=== PATIENT | female | born 1935 | race Hispanic/Latino ===

== ENCOUNTER 2017-01-17 14:40 | Emergency (ER) | payer MEDICARE ==
[2017-01-17 15:20] VITALS: BMI 26.2
[2017-01-17 15:26] VITALS: BP 102/63; PULSE 84; RESP 22; TEMP 97.8; O2SAT 86
[2017-01-17] MEDS ORDERED: TDAP Vaccine 0.5 mL Syr IM ONE (15:46)
--- NOTE | 2017-01-17 15:48 | ED PDOC ---
Arrival/HPI - General Time Seen by Provider: 01/17/17 15:26 - History of Present Illness Narrative History of Present Illness (Text): 01/17/17 15:47 81-year-old female presents emergency Department with a 2-day-old right forearm bite from her cat. Patient states that her cat's rabies vaccinations are up-to- date, states that her cat frequently bites her, states that this is not an unusual occurrence, but states that she became concerned because the site became erythematous. Denies any fevers or chills. Denies any paresthesias. Past Medical History - Provider Review Nursing Documentation Reviewed: Yes - Tetanus Immunization Tetanus Immunization: Unknown - Cardiac Hx Hypertension: Yes - Pulmonary Hx Chronic Obstructive Pulmonary Disease (COPD): Yes - Neurological Hx Paralysis: No - Endocrine/Metabolic Hx Hypothyroidism: Yes - Hematological/Oncological Hx Blood Transfusions: No - Musculoskeletal/Rheumatological Hx Falls: No - Psychiatric Hx Depression: Yes Hx Substance Use: No - Surgical History Hx Cataract Extraction: Yes - Anesthesia Hx Anesthesia: Yes Hx Anesthesia Reactions: No Hx Malignant Hyperthermia: No - Suicidal Assessment Feels Threatened In Home Enviroment: No Family/Social History Family/Social History: Unknown Family HX Smoking Status: Former Smoker Hx Alcohol Use: Yes Hx Substance Use: No Allergies/Home Meds Allergies/Adverse Reactions: Allergies amoxicillin Allergy (Verified 08/15/16 14:49) URTICARIA Penicillins Allergy (Verified 08/15/16 14:49) URTICARIA Home Medications: Home Meds Medication Instructions Recorded Confirmed Atenolol [Atenolol] 25 mg PO DAILY 01/08/15 02/06/15 Escitalopram [Lexapro] 20 mg PO DAILY 01/08/15 02/06/15 Levothyroxine [Synthroid] 75 mcg PO DAILY 01/08/15 02/06/15 Simvastatin [Simvastatin] 20 mg PO DAILY 01/08/15 02/06/15 Arformoterol [Brovana] 1 mayra NEB BID 01/30/15 02/03/15 Budesonide [Pulmicort Respules] 0.5 mg NEB BID 01/30/15 02/03/15 Calcium [Citracal Liquitab] 4 tab PO DAILY 01/30/15 02/03/15 Tiotropium [Spiriva] 18 mcg IH DAILY 01/30/15 02/06/15 predniSONE [Prednisone] 40 mg PO 02/06/15 02/06/15 Riociguat [Adempas] 12/17/15 Physical Exam - Physical Exam Narrative Physical Exam (Text): - Review of Systems Constitutional: Normal. absent: Fatigue, Weight Change, Fevers Eyes: Normal ENT: denies sore throat, denies tristhmus Respiratory: Normal. absent: SOB, Cough, Sputum Cardiovascular: absent: Chest Pain, Palpitations, Syncope Gastrointestinal: Normal. absent: Abdominal Pain, Diarrhea, Nausea, Vomiting Genitourinary: Normal. absent: Dysuria, Frequency, Hematuria, vaginal bleeding Musculoskeletal: Normal. absent: Arthralgias, Back Pain, Neck Pain Skin: bite. no rashes, no erythema Neurological: absent: Focal Weakness Endocrine: Normal Hemo/Lymphatic: Normal Psychiatric: No suicidal or homicidal ideations Physical exam Patient appears age appropriate in no distress, speaking full sentences without difficulty - Systems Exam Head: Present: Atraumatic, Normocephalic Pupils: Present: PERRL Extroacular Muscles: Present: EOMI Conjunctiva: Present: Normal Mouth: Present: Moist Mucous Membranes Neck: Present: Normal Range of Motion. No: MIDLINE TENDERNESS, Paraspinal Tenderness Respiratory/Chest: Present: Clear to Auscultation, Good Air Exchange. No: Respiratory Distress, Accessory Muscle Use, Tachypneic Cardiovascular: Present: Regular Rate and Rhythm, Normal S1, S2, Peripheal Pulses Present. No: Murmurs Abdomen: Present: Normal Bowel Sounds. No: Tenderness, Distention, Peritoneal Signs, Rebound, Guarding Back: Present: Normal Inspection. No: Midline Tenderness, Paraspinal Tenderness Upper Extremity: Present: Normal Inspection. No: Cyanosis, Edema Lower Extremity: Present: Normal Inspection. No: Edema Neurological: Present: GCS=15, Speech Normal, cranial nerves II through XII fully intact with no cerebellar abnormality, neurosensory fully intact. No focal neurological deficits. Skin: Present: Horizontal abrasion patient's right forearm. Healing by secondary intention. Surrounding erythema with less than 1 cm margin without streaking, without purulent discharge. Dry, Normal Color. No: Rashes Lymphatic: Present: OX3, NI, NC Psychiatric: Present: Alert, Oriented x 3, Normal Insight, Normal Concentration Vital Signs Reviewed: Yes Vital Signs Temp Pulse Resp BP Pulse Ox 01/17/17 15:25 97.8 F 84 22 102/63 86 L Temperature: Afebrile Blood Pressure: Normal Pulse: Regular Respiratory Rate: Normal Appearance: Positive for: Well-Appearing Pain Distress: None Mental Status: Positive for: Alert and Oriented X 3 Medical Decision Making ED Course and Treatment: 01/17/17 15:52 81-year-old female presents to the ER after a cat bite. Patient states that cat is up to date with rabies vaccinations. On exam patient has a horizontal abrasion her right forearm. Healing by secondary intention. Surrounding erythema with less than 1 cm margin without streaking, without purulent discharge. No crepitus, no pain out of proportion on palpation. Erythematous area demarcated with a surgical marker Patient instructed to come back right away if the erythema fails to resolve or spreads beyond the margins Patient is penicillin allergic Will be given doxycycline prescription Instructed to follow-up with her primary physician in the next 48 hours for recheck Pt states she understands to return to the ER right away for new or worsening symptoms or for inability to f/u with PMD or specialist as instructed. Patient states that she fully agrees with and understands discharge instructions. States that she agrees with the plan and disposition. Verbalized and repeated discharge instructions and plan. I have given the patient opportunity to ask any additional questions. Disposition/Present on Arrival - Present on Arrival Any Indicators Present on Arrival: No History of DVT/PE: No History of Uncontrolled Diabetes: No Urinary Catheter: No History Surgical Site Infection Following: None - Disposition Have Diagnosis and Disposition been Completed?: Yes Diagnosis: Cat bite Disposition: HOME/ ROUTINE Disposition Time: 15:55 Patient Plan: Discharge Condition: GOOD Discharge Instructions (ExitCare): Animal Bite (ED) Additional Instructions: Please follow-up with your primary physician within 48 hours for wound check Return to the emergency Department right away for fevers, chills, if you are unable to follow up with a primary physician as instructed, for new or worsening redness or swelling, or if the redness spreads outside the demarcated area. Prescriptions: Doxycycline Monohydrate 100 mg PO BID #19 tablet Referrals: Elizabeth Camara MD [Primary Care Provider] - Follow up with primary
== END 2017-01-17 17:25 | disposition home or self-care (01) ==
LOC: ED 14:40
DX: S51.851A Open bite of right forearm, initial encounter (principal); W55.01XA Bitten by cat, initial encounter; Y92.89 Other specified places as the place of occurrence of the external cause; Z23 Encounter for immunization

== ENCOUNTER 2018-08-28 05:53 | Inpatient (IN) | payer MEDICARE ==
[2018-08-28 05:55] VITALS: BMI 23.6
--- NOTE | 2018-08-28 06:09 | ED PDOC ---
Arrival/HPI - General Chief Complaint: Chest Pain Time Seen by Provider: 08/28/18 05:56 Historian: Patient - History of Present Illness Narrative History of Present Illness (Text): 08/28/18 06:09 Areli Quinones is an 83 year old female, whose past medical history includes COPD, pulmonary hypertension, and hyperlipidemia, who presents to the Emergency department brought in by EMS complaining of chest pain. As per patient, she beg an experiencing right-sided chest pain, radiating to her mid chest at 12am today. Patient reports some associated shortness of breath. Patient denies any fever, chills, chest pain, shortness of breath, nausea, vomiting, diarrhea, urinary symptoms, back pain, neck pain, headache, dizziness, or any other complaints. Symptom Onset: Gradual Symptom Course: Unchanged Activities at Onset: Light Context: Home Past Medical History - Provider Review Nursing Documentation Reviewed: Yes - Infectious Disease Hx of Infectious Diseases: None - Tetanus Immunization Tetanus Immunization: Unknown - Reproductive Menopause: Yes - Cardiac Hx Hypertension: Yes - Pulmonary Hx Chronic Obstructive Pulmonary Disease (COPD): Yes - Neurological Hx Paralysis: No - Endocrine/Metabolic Hx Hypothyroidism: Yes - Hematological/Oncological Hx Blood Transfusions: No - Musculoskeletal/Rheumatological Hx Falls: No - Psychiatric Hx Depression: Yes Hx Substance Use: No - Surgical History Hx Cataract Extraction: Yes - Anesthesia Hx Anesthesia: Yes Hx Anesthesia Reactions: No Hx Malignant Hyperthermia: No - Suicidal Assessment Feels Threatened In Home Enviroment: No Family/Social History - Physician Review Nursing Documentation Reviewed: Yes Family/Social History: Unknown Family HX Smoking Status: Former Smoker Hx Alcohol Use: Yes Hx Substance Use: No Allergies/Home Meds Allergies/Adverse Reactions: Allergies amoxicillin Allergy (Verified 08/28/18 05:57) URTICARIA Penicillins Allergy (Verified 08/28/18 05:57) URTICARIA Home Medications: Home Meds Medication Instructions Recorded Confirmed Atenolol 25 mg PO DAILY 01/08/15 02/06/15 Escitalopram [Lexapro] 20 mg PO DAILY 01/08/15 02/06/15 Levothyroxine [Synthroid] 75 mcg PO DAILY 01/08/15 02/06/15 Simvastatin 20 mg PO DAILY 01/08/15 02/06/15 Arformoterol [Brovana] 1 mayra NEB BID 01/30/15 02/03/15 Budesonide [Pulmicort Respules] 0.5 mg NEB BID 01/30/15 02/03/15 Calcium [Citracal Liquitab] 4 tab PO DAILY 01/30/15 02/03/15 Tiotropium [Spiriva] 18 mcg IH DAILY 01/30/15 02/06/15 predniSONE [Prednisone] 40 mg PO 02/06/15 02/06/15 Riociguat [Adempas] 12/17/15 Review of Systems - Physician Review All systems were reviewed & negative as marked: Yes - Review of Systems Constitutional: Normal. absent: Fevers Eyes: Normal ENT: Normal Respiratory: SOB. absent: Cough Cardiovascular: Chest Pain Gastrointestinal: Normal. absent: Abdominal Pain, Diarrhea, Nausea, Vomiting Genitourinary Female: Normal. absent: Dysuria, Frequency, Hematuria Musculoskeletal: Normal. absent: Back Pain, Neck Pain Skin: Normal. absent: Rash Neurological: Normal. absent: Headache, Dizziness Endocrine: Normal Hemo/Lymphatic: Normal Psychiatric: Normal Physical Exam Vital Signs Reviewed: Yes Vital Signs Temp Pulse Resp BP Pulse Ox 08/28/18 06:06 97.9 F 81 17 120/66 89 L Temperature: Afebrile Blood Pressure: Normal Pulse: Regular Respiratory Rate: Normal Appearance: Positive for: Well-Appearing, Non-Toxic, Comfortable Pain Distress: None Mental Status: Positive for: Alert and Oriented X 3 - Systems Exam Head: Present: Atraumatic, Normocephalic Pupils: Present: PERRL Extroacular Muscles: Present: EOMI Conjunctiva: Present: Normal Mouth: Present: Moist Mucous Membranes Neck: Present: Normal Range of Motion Respiratory/Chest: Present: Clear to Auscultation, Good Air Exchange. No: Respiratory Distress, Accessory Muscle Use Cardiovascular: Present: Regular Rate and Rhythm, Normal S1, S2. No: Murmurs Abdomen: No: Tenderness, Distention, Peritoneal Signs Back: Present: Normal Inspection Upper Extremity: Present: Normal Inspection. No: Cyanosis, Edema Lower Extremity: Present: Normal Inspection. No: Edema Neurological: Present: GCS=15, CN II-XII Intact, Speech Normal Skin: Present: Warm, Dry, Normal Color. No: Rashes Psychiatric: Present: Alert, Oriented x 3, Normal Insight, Normal Concentration Medical Decision Making ED Course and Treatment: 08/28/18 06:09 Impression: 83 year old female complaining of chest pain and shortness of breath. Plan: -- EKG -- Chest X-ray -- Labs, cardiac enzymes, D-dimer, BNP -- Reassess and disposition Prior Visits: Notes and results from previous visits were reviewed. Progress Notes: Reviewed EKG, NSR at 80 bpm. Sinus arrhythmia. Non-specific ST/T wave changes. 08/28/18 07:[address] Myles, pending labs, re-evaluation, and disposition. - Scribe Statement The provider has reviewed the documentation as recorded by the Jacqui Gonzalez Provider Scribe Attestation: All medical record entries made by the Scribe were at my direction and personally dictated by me. I have reviewed the chart and agree that the record accurately reflects my personal performance of the history, physical exam, medical decision making, and the department course for this patient. I have also personally directed, reviewed, and agree with the discharge instructions and disposition. Disposition/Present on Arrival - Present on Arrival Any Indicators Present on Arrival: No History of DVT/PE: No History of Uncontrolled Diabetes: No Urinary Catheter: No History of Decub. Ulcer: No History Surgical Site Infection Following: None - Disposition Have Diagnosis and Disposition been Completed?: No Diagnosis: Chest pain Disposition Time: 07:00 Condition: STABLE Discharge Instructions (ExitCare): Chest Pain (ED) Forms: [employer] (Tanzanian)
--- NOTE | 2018-08-28 07:17 | ED PDOC ---
Physical Exam Vital Signs Temp Pulse Resp BP Pulse Ox 08/28/18 06:06 97.9 F 81 17 120/66 89 L Medical Decision Making ED Course and Treatment: 08/28/18 07:00 Case endorsed to me by Dr. Braga. Currently pending labs, reevaluation, and disposition. 08/28/18 07:57 all labs returned and patient updated on results. patient reports to me that she had right upper quad pain that migrated to the epigastric area, associated with nausea and vomit. on exam there is mild epigastric tendernss, no guarding, no rebound, no rigidity, no pulsatile abdominal mass, neg lance. will extend workup to eval for pancreatitis and biliary colic. it was noted on exam that the patient's abdomen appears somewhat distended, patient reports that her abdomen typical has this appearance. Will consider CT. 08/28/18 09:17 at this time patient has no abdominal pain. US shows abnormality concerning for cholecystitis. ddx including but not limited to ruptured duodenal ulcer but unlikely given the patient's presentation and physical exam. admit accepted by dr. siddiqi to the hospitalist service. observation status. case discussed with the surgical assist and will see pt in consult. - RAD Interpretation Narrative RAD Interpretations (Text): 08/28/18 07:24 ekg my read: sinus rhythm at 80 bpm, nml qrs, low voltage, nonspecific t wave abn, prolonged QTc Radiology Orders: 08/28/18 06:43 CHEST PORTABLE [RAD] Stat - Scribe Statement The provider has reviewed the documentation as recorded by the Jacqui Salamanca Provider Scribe Attestation: All medical record entries made by the Scribe were at my direction and personally dictated by me. I have reviewed the chart and agree that the record accurately reflects my personal performance of the history, physical exam, [facility] decision making, and the department course for this patient. I have also personally directed, reviewed, and agree with the discharge instructions and disposition. Disposition/Present on Arrival - Present on Arrival Any Indicators Present on Arrival: No History of DVT/PE: No History of Uncontrolled Diabetes: No Urinary Catheter: No History of Decub. Ulcer: No History Surgical Site Infection Following: None - Disposition Have Diagnosis and Disposition been Completed?: Yes Diagnosis: Abdominal pain, Biliary colic Disposition: HOSPITALIZED Disposition Time: 09:19 Patient Plan: Observation Patient Problems: Current Active Problems Problem Status Onset Chest pain Acute Condition: STABLE Discharge Instructions (ExitCare): Chest Pain (ED) Forms: [employer] (Lao)
[2018-08-28 07:25] LABS: HEMOGLOBIN 10.9 g/dL (12.0-16.0); MEAN CELL VOLUME 93.1 fl (80.0-105.0); MEAN CORPUSCULAR HEMOGLOBIN 28.9 pg (25.0-35.0); MEAN CORPUSCULAR HGB CONC 31.1 g/dl (31.0-37.0); MEAN PLATELET VOLUME 8.5 fl (7.0-11.0); RBC 3.77 10^6/uL (3.5-6.1); RED CELL DISTRIBUTION WIDTH 14.4 % (11.5-14.5); WHITE BLOOD COUNT 10.4 10^3/uL (4.5-11.0)
[2018-08-28 07:34] LABS: ALB/GLOB RATIO 1.4 (1.1-1.8); ALBUMIN 4.1 g/dL (3.0-4.8); ALT/SGPT 23 U/L (7-56); AST/SGOT 25 U/L (14-36); BLOOD UREA NITROGEN 14 mg/dL (7-21); GFR NON-AFRICAN AMERICAN 43; INR 1.05; PARTIAL THROMBOPLASTIN TIME 28.2 Seconds (25.1-36.5); PROTHROMBIN TIME 12.1 SECONDS (9.4-12.5)
[2018-08-28 07:47] LABS: B-TYPE NATRIURETIC PEPTIDE 490 pg/mL (0-450); TROPONIN I < 0.01 ng/mL
[2018-08-28] MEDS ORDERED: Potassium Chloride 20 mEq ER Tab PO STA (08:47)
[2018-08-28] MEDS ORDERED: Sodium Chloride 0.9% 1,000 ML IV SCH (09:30)
--- NOTE | 2018-08-28 10:02 | RAD ---
Date of service: 08/28/2018 HISTORY: chest pain COMPARISON: 10/26/2017 FINDINGS: LUNGS: No active pulmonary disease. PLEURA: No significant pleural effusion identified, no pneumothorax apparent. CARDIOVASCULAR: No aortic atherosclerotic calcification present. Normal cardiac size. No pulmonary vascular congestion. OSSEOUS STRUCTURES: No significant abnormalities. VISUALIZED UPPER ABDOMEN: Normal. OTHER FINDINGS: None. IMPRESSION: No active disease.
--- NOTE | 2018-08-28 10:52 | US ---
Date of service: 08/28/2018 HISTORY: pain, ?gallstones COMPARISON: 06/08/2016 abdominal ultrasound TECHNIQUE: Sonographic evaluation of the right upper quadrant of the abdomen. FINDINGS: LIVER: Measures 16.7 cm in length. Patent portal vein. Portal venous flow: Hepatopetal. Unremarkable echogenicity of the liver parenchyma. No mass. No intrahepatic bile duct dilatation. Solitary echogenic mass in the right hepatic lobe 7 x 9 mm, identified on the prior ultrasound of the liver cannot be duplicated on the current study GALLBLADDER: Gallstones identified. Gallbladder wall edema noted in there is trace pericholecystic fluid. Despite the absence of sonographic Walsh sign the findings are suspicious for acute cholecystitis. COMMON BILE DUCT: Measures 4.2 mm. No stones. No dilatation. PANCREAS: Unremarkable as visualized. No mass. No ductal dilatation. RIGHT KIDNEY: Measures 3.6 x 9.6 cm in length. Normal echogenicity. No calculus, mass, or hydronephrosis. AORTA: No aneurysmal dilatation. IVC: Unremarkable. OTHER FINDINGS: None . IMPRESSION: Gallstones. Gallbladder wall thickening/pericholecystic fluid presumptive evidence for acute cholecystitis.
--- NOTE | 2018-08-28 12:12 | CP.PCM.CON ---
<mEeka Manuel - Last Filed: 08/28/18 14:19> History of Present Illness - History of Present Illness History of Present Illness: Surgery Consult Note- Dr. Huang Reason for Consult: RUQ pain 83 y/o female with PMH of COPD, HTN, HCL, Hypothyroidism, Depression, GERD, pulmonary HTN presents to the ED for one day h/o sharp RUQ/epigastric abd pain 8-9/10, intermittent, not related to food ingestion, with no alleviating or worsening factors. Pain is associated with one episode of NBNB vomiting and nausea. Patient denied fever, hematemesis, hematochezia, melena. Patient denied similar episodes in the past. 12 points ROS reviewed with pertinent positives as above. PMH: as above PSH: cataract surgery Meds: as per EMR All: PCN SH: Former Smoker, alcoholic. denied drug use FH: non contributory Past Patient History - Infectious Disease Hx of Infectious Diseases: None - Tetanus Immunizations Tetanus Immunization: Unknown - Past Social History Smoking Status: Former Smoker - CARDIAC Hx Hypertension: Yes - PULMONARY Hx Chronic Obstructive Pulmonary Disease (COPD): Yes - NEUROLOGICAL Hx Paralysis: No - ENDOCRINE/METABOLIC Hx Hypothyroidism: Yes - HEMATOLOGICAL/ONCOLOGICAL Hx Blood Transfusions: No - MUSCULOSKELETAL/RHEUMATOLOGICAL Hx Falls: No - PSYCHIATRIC Hx Depression: Yes Hx Substance Use: No - SURGICAL HISTORY Hx Cataract Extraction: Yes - ANESTHESIA Hx Anesthesia: Yes Hx Anesthesia Reactions: No Hx Malignant Hyperthermia: No Meds Allergies/Adverse Reactions: Allergies Allergy/AdvReac Type Severity Reaction Status Date / Time amoxicillin Allergy URTICARIA Verified 08/28/18 05:57 Penicillins Allergy URTICARIA Verified 08/28/18 05:57 - Medications Medications: Current Medications Sodium Chloride (Sodium Chloride 0.9%) 1,000 mls @ 150 mls/hr IV .[id number] [facility] Last Admin: 08/28/18 10:38 Dose: 150 mls/hr Physical Exam - Constitutional Appears: Well, Non-toxic - Head Exam Head Exam: ATRAUMATIC, NORMAL INSPECTION, NORMOCEPHALIC - Eye Exam Eye Exam: EOMI, Normal appearance, PERRL Pupil Exam: NORMAL ACCOMODATION, PERRL - ENT Exam ENT Exam: Mucous Membranes Moist, Normal Exam - Neck Exam Neck exam: Positive for: Normal Inspection - Respiratory Exam Respiratory Exam: Clear to Auscultation Bilateral, NORMAL BREATHING PATTERN - Cardiovascular Exam Cardiovascular Exam: REGULAR RHYTHM, +S1, +S2 - GI/Abdominal Exam GI & Abdominal Exam: Normal Bowel Sounds, Soft, Tenderness (mild TTP in RUQ and epigastric areas). absent: Distended, Hernia, Mass, Rebound, Rigid Additional comments: negative Walsh's - Back Exam Back exam: NORMAL INSPECTION - Neurological Exam Neurological exam: Alert, CN II-XII Intact, Oriented x3 - Psychiatric Exam Psychiatric exam: Normal Affect, Normal Mood - Skin Skin Exam: Dry, Intact, Normal Color, Warm Results - Vital Signs Recent Vital Signs: Last Vital Signs Temp 98.4 F 08/28/18 10:42 Pulse 70 08/28/18 10:42 Resp 18 08/28/18 10:42 BP 100/53 L 08/28/18 10:42 Pulse Ox 94 L 08/28/18 11:00 - Labs Result Diagrams: 08/28/18 07:00 08/28/18 07:00 Labs: Laboratory Results - last 24 hr 08/28/18 08/28/18 08/28/18 07:00 07:00 07:00 WBC 10.4 RBC 3.77 Hgb 10.9 L Hct 35.1 L MCV 93.1 MCH 28.9 MCHC 31.1 RDW 14.4 Plt Count 345 MPV 8.5 PT 12.1 INR 1.05 APTT 28.2 D-Dimer, Quantitative 210 Sodium 139 Potassium 3.1 L Chloride 102 Carbon Dioxide 30 Anion Gap 10 BUN 14 Creatinine 1.2 Est GFR ( Amer) 52 Est GFR (Non-Af Amer) 43 Random Glucose 131 H Calcium 9.0 Total Bilirubin 0.6 AST 25 ALT 23 Alkaline Phosphatase 69 Lactate Dehydrogenase 463 Total Creatine Kinase 160 Troponin I < 0.01 NT-Pro-B Natriuret Pep 490 H Total Protein 7.1 Albumin 4.1 Globulin 3.0 Albumin/Globulin Ratio 1.4 Lipase 08/28/18 07:00 WBC RBC Hgb Hct MCV MCH MCHC RDW Plt Count MPV PT INR APTT D-Dimer, Quantitative Sodium Potassium Chloride Carbon Dioxide Anion Gap BUN Creatinine Est GFR ( Amer) Est GFR (Non-Af Amer) Random Glucose Calcium Total Bilirubin AST ALT Alkaline Phosphatase Lactate Dehydrogenase Total Creatine Kinase Troponin I NT-Pro-B Natriuret Pep Total Protein Albumin Globulin Albumin/Globulin Ratio Lipase 116 Assessment & Plan - Assessment and Plan (Free Text) Assessment: 83 y/o female with RUQ/epigastric abd pain x1 day. Patient afebrile, no leukocytosis, in NAD COPD HTN HLD Hypothyroidism Depression GERD Pulmonary HTN Plan: -U/S abd: gall bladder wall thickening with pericholecystic fluid. CBD 4.2 -LFT, lipase wnl -protonix -continue IVF -started cipro -clear liquid diet -no acute surgical intervention at this time -continued management per primary team -further recs per surgical attending Dr. Sal Manuel, DO <Andres Huang - Last Filed: 09/01/18 20:40> Results - Vital Signs Recent Vital Signs: Last Vital Signs Temp 98.2 F 09/01/18 06:00 Pulse 66 09/01/18 06:00 Resp 18 09/01/18 06:00 BP 98/60 L 09/01/18 10:05 Pulse Ox 92 L 09/01/18 06:00 - Labs Result Diagrams: 08/31/18 05:30 08/31/18 05:30 Labs: Laboratory Results - last 24 hr 09/01/18 10:20 Urine Color Yellow Urine Appearance Clear Urine pH 5.5 Ur Specific [place] 1.025 Urine Protein Negative Urine Glucose (UA) Negative Urine Ketones Negative Urine Blood Negative Urine Nitrate Negative Urine Bilirubin Negative Urine Urobilinogen 0.2 Ur Leukocyte Esterase Negative Attending/Attestation - Attestation I have personally seen and examined this patient.: Yes I have fully participated in the care of the patient.: Yes I have reviewed all pertinent clinical information: Yes Notes (Text): Pt was seen and examined at bedside Agree with above note and assessment Pt with upper abdominal pain and nausea Abdomen: Soft, Tender in RUQ, ND Labs and radiology reviewed Ass: Abdominal pain, Cholelithiasis Plan: Clear liquid diet GI consult HIDA scan IV antibiotics c.w current mx Plan d.w pt in detail Risk and benefit explained in detail.
--- NOTE | 2018-08-28 13:28 | CP.PCM.HP ---
<Dewayne Manuelony - Last Filed: 08/28/18 14:12> Meds Allergies/Adverse Reactions: Allergies Allergy/AdvReac Type Severity Reaction Status Date / Time amoxicillin Allergy URTICARIA Verified 08/28/18 05:57 Penicillins Allergy URTICARIA Verified 08/28/18 05:57 Results - Vital Signs Recent Vital Signs: Last Vital Signs Temp 98.4 F 08/28/18 10:42 Pulse 70 08/28/18 10:42 Resp 18 08/28/18 10:42 BP 100/53 L 08/28/18 10:42 Pulse Ox 94 L 08/28/18 11:00 - Labs Result Diagrams: 08/28/18 07:00 08/28/18 07:00 Labs: Laboratory Results - last 24 hr 08/28/18 08/28/18 08/28/18 07:00 07:00 07:00 WBC 10.4 RBC 3.77 Hgb 10.9 L Hct 35.1 L MCV 93.1 MCH 28.9 MCHC 31.1 RDW 14.4 Plt Count 345 MPV 8.5 PT 12.1 INR 1.05 APTT 28.2 D-Dimer, Quantitative 210 Sodium 139 Potassium 3.1 L Chloride 102 Carbon Dioxide 30 Anion Gap 10 BUN 14 Creatinine 1.2 Est GFR ( Amer) 52 Est GFR (Non-Af Amer) 43 Random Glucose 131 H Calcium 9.0 Total Bilirubin 0.6 AST 25 ALT 23 Alkaline Phosphatase 69 Lactate Dehydrogenase 463 Total Creatine Kinase 160 Troponin I < 0.01 NT-Pro-B Natriuret Pep 490 H Total Protein 7.1 Albumin 4.1 Globulin 3.0 Albumin/Globulin Ratio 1.4 Lipase 08/28/18 07:00 WBC RBC Hgb Hct MCV MCH MCHC RDW Plt Count MPV PT INR APTT D-Dimer, Quantitative Sodium Potassium Chloride Carbon Dioxide Anion Gap BUN Creatinine Est GFR ( Amer) Est GFR (Non-Af Amer) Random Glucose Calcium Total Bilirubin AST ALT Alkaline Phosphatase Lactate Dehydrogenase Total Creatine Kinase Troponin I NT-Pro-B Natriuret Pep Total Protein Albumin Globulin Albumin/Globulin Ratio Lipase 116 <Neto Palacios - Last Filed: 08/28/18 17:18> History of Present Illness - History of Present Illness History of Present Illness: HISTORY & PHYSICAL NOTE FOR HOSPITALIST TEAM- DR. BAUDILIO PALACIOS PGY1 83 y/o F with PMHx of COPD on 3L home O2, pulm HTN, HTN, HLD, hypothyroidism, depression, anxiety presents to ED with complaints of abdominal pain that started last night around 12am. She reports she noticed burning 6/10 right upper quadrant pain that eventually radiated to the epigastric region. She reports associated nausea and 2 episodes of vomiting. Upon interview, she reports the pain has begun to resolve. Pt also reports burning with urination without hematuria or noted pyuria. She reports shortnes of breath for several years. She denies fevers, chills, headache, dizziness, chest pain, palpitations, constipation, diarrhea. PMH:COPD on 3L home O2, Pulm HTN, HTN, HLD, hypothyroidism, depression All: penicillins-Hives PSH: liposuction 10 years ago, colonoscopy x 2 SH: 1 pack/day x 60 years. 4-5 glasses wine x 15 years. No drug use FH: Mother: -dementia. Father: . Brother: prostate cancer Meds:Uptravi 1200mg q12h, Adempas 2.5mg tid, levothyroxine 100mcg qd, simvastatin 20mg qd, furosemide 40mg qd, escitalopram 20mg qd, alprazolam 0.25mg qhs, pantoprazole 40mg qd, spiriva inh 18mcg, mucinex dm qd PMD: Dr. Reed [facility]: [facility] (p[facility] HTN meds) Present on Admission - Present on Admission Any Indicators Present on Admission: No Review of Systems - Review of Systems Review of Systems: per HPI Past Patient History - Infectious Disease Hx of Infectious Diseases: None - Tetanus Immunizations Tetanus Immunization: Unknown - Past Social History Smoking Status: Former Smoker - CARDIAC Hx Hypertension: Yes - PULMONARY Hx Chronic Obstructive Pulmonary Disease (COPD): Yes - NEUROLOGICAL Hx Paralysis: No - ENDOCRINE/METABOLIC Hx Hypothyroidism: Yes - HEMATOLOGICAL/ONCOLOGICAL Hx Blood Transfusions: No - MUSCULOSKELETAL/RHEUMATOLOGICAL Hx Falls: No - PSYCHIATRIC Hx Depression: Yes Hx Substance Use: No - SURGICAL HISTORY Hx Cataract Extraction: Yes - ANESTHESIA Hx Anesthesia: Yes Hx Anesthesia Reactions: No Hx Malignant Hyperthermia: No Physical Exam - Constitutional Appears: Well, Non-toxic, No Acute Distress - Head Exam Head Exam: ATRAUMATIC, NORMAL INSPECTION - Eye Exam Eye Exam: EOMI, Normal appearance - ENT Exam ENT Exam: Mucous Membranes Moist, Normal Exam - Neck Exam Neck exam: Positive for: Normal Inspection - Respiratory Exam Respiratory Exam: Clear to Auscultation Bilateral, NORMAL BREATHING PATTERN - Cardiovascular Exam Cardiovascular Exam: REGULAR RHYTHM, +S1, +S2 - GI/Abdominal Exam GI & Abdominal Exam: Normal Bowel Sounds, Soft. absent: Distended, Guarding, Rigid, Tenderness Additional comments: lance (-) - Extremities Exam Extremities exam: Positive for: normal inspection. Negative for: calf tenderness - Back Exam Back exam: NORMAL INSPECTION - Neurological Exam Neurological exam: Alert, Oriented x3 - Psychiatric Exam Psychiatric exam: Normal Affect, Normal Mood - Skin Skin Exam: Dry, Intact, Warm Results - Vital Signs Recent Vital Signs: Last Vital Signs Temp 98.4 F 08/28/18 10:42 Pulse 70 08/28/18 10:42 Resp 18 08/28/18 10:42 BP 100/53 L 08/28/18 10:42 Pulse Ox 94 L 08/28/18 11:00 - Labs Result Diagrams: 08/28/18 07:00 08/28/18 07:00 Labs: Laboratory Results - last 24 hr 08/28/18 08/28/18 08/28/18 07:00 07:00 07:00 WBC 10.4 RBC 3.77 Hgb 10.9 L Hct 35.1 L MCV 93.1 MCH 28.9 MCHC 31.1 RDW 14.4 Plt Count 345 MPV 8.5 PT 12.1 INR 1.05 APTT 28.2 D-Dimer, Quantitative 210 Sodium 139 Potassium 3.1 L Chloride 102 Carbon Dioxide 30 Anion Gap 10 BUN 14 Creatinine 1.2 Est GFR ( Amer) 52 Est GFR (Non-Af Amer) 43 Random Glucose 131 H Calcium 9.0 Total Bilirubin 0.6 AST 25 ALT 23 Alkaline Phosphatase 69 Lactate Dehydrogenase 463 Total Creatine Kinase 160 Troponin I < 0.01 NT-Pro-B Natriuret Pep 490 H Total Protein 7.1 Albumin 4.1 Globulin 3.0 Albumin/Globulin Ratio 1.4 Lipase 08/28/18 07:00 WBC RBC Hgb Hct MCV MCH MCHC RDW Plt Count MPV PT INR APTT D-Dimer, Quantitative Sodium Potassium Chloride Carbon Dioxide Anion Gap BUN Creatinine Est GFR ( Amer) Est GFR (Non-Af Amer) Random Glucose Calcium Total Bilirubin AST ALT Alkaline Phosphatase Lactate Dehydrogenase Total Creatine Kinase Troponin I NT-Pro-B Natriuret Pep Total Protein Albumin Globulin Albumin/Globulin Ratio Lipase 116 Assessment & Plan - Assessment and Plan (Free Text) Assessment: 83 y/o F with PMHx of COPD on 3L home O2, pulm HTN, HTN, HLD, hypothyroidism, depression, anxiety admitted for abdominal pain 2/2 acute cholecystitis Plan: Acute cholecystitis Abd u/s reveals gallstones with GB wall thickening/pericholecystic fluid presumptive evidence for acute cholecystitis Lipase/LFTs wnl Consult surgery: No acute surgical intervention at this time Begin empiric ciprofloxacin, IVF, CLD Hx of Pulm HTN continue home Uptravi and Adempas continue home lasix Hx of COPD Duonebs continue home Spiriva Hx of HLD Continue atorvastatin Hx of Depression Continue escitalopram, xanax Hx of hypothyroidism continue home levothyroxine DVT/GI: LVX/PTX Case seen, examined and discussed with attending physician, Dr Baudilio Palacios PGY1
[2018-08-28] MEDS ORDERED: Tiotropium 18 mcg Cap For Inhalation IH SCH (16:00)
[2018-08-28] MEDS ORDERED: Non Formulary Medication (Simvastatin [Zocor] 1 TAB) PO SCH (16:00)
[2018-08-28] MEDS ORDERED: guaiFENesin-DM 600-30 mg ER Tab PO SCH (16:00)
[2018-08-28] MEDS ORDERED: Home Med 1 UNIT PO SCH ×3 (16:00→18:00)
[2018-08-28] MEDS ORDERED: Pantoprazole 40 mg EC Tab PO SCH (16:00)
[2018-08-28] MEDS ORDERED: Albuterol-Ipratrop 3 mg / 0.5 (3 ml) UD IH PRN (16:10)
[2018-08-28] MEDS ORDERED: UPTRAVI PO SCH (16:30)
[2018-08-28] MEDS ORDERED: Influenza Vaccine 60 mcg/0.5 mL SYR (4YR UP) IM ONE (17:09)
[2018-08-28] MEDS ORDERED: Pneumococcal 23-Valent Vaccine IM ONE (17:09)
--- NOTE | 2018-08-28 17:21 | CP.PCM.HP ---
<Neto Palacios - Last Filed: 08/28/18 17:21> History of Present Illness - History of Present Illness History of Present Illness: HISTORY & PHYSICAL NOTE FOR HOSPITALIST TEAM- DR. BAUDILIO PALACIOS PGY1 83 y/o F with PMHx of COPD on 3L home O2, pulm HTN, HTN, HLD, hypothyroidism, depression, anxiety presents to ED with complaints of abdominal pain that started last night around 12am. She reports she noticed burning 6/10 right upper quadrant pain that eventually radiated to the epigastric region. She reports associated nausea and 2 episodes of vomiting. Upon interview, she reports the pain has begun to resolve. Pt also reports burning with urination without hematuria or noted pyuria. She reports shortnes of breath for several years. She denies fevers, chills, headache, dizziness, chest pain, palpitations, constipation, diarrhea. PMH:COPD on 3L home O2, Pulm HTN, HTN, HLD, hypothyroidism, depression All: penicillins-Hives PSH: liposuction 10 years ago, colonoscopy x 2 SH: 1 pack/day x 60 years. 4-5 glasses wine x 15 years. No drug use FH: Mother: -dementia. Father: . Brother: prostate cancer Meds: Uptravi 1200mg q12h, Adempas 2.5mg tid, levothyroxine 100mcg qd, simvastatin 20mg qd, furosemide 40mg qd, escitalopram 20mg qd, alprazolam 0.25mg qhs, pantoprazole 40mg qd, spiriva inh 18mcg, mucinex dm qd PMD: Dr. Reed [facility]: [facility] (p[facility] HTN meds) Present on Admission - Present on Admission Any Indicators Present on Admission: No Review of Systems - Review of Systems Review of Systems: per HPI Past Patient History - Infectious Disease Hx of Infectious Diseases: None - Tetanus Immunizations Tetanus Immunization: Unknown - Past Social History Smoking Status: Former Smoker - CARDIAC Hx Cardiac Disorders: Yes Hx Hypercholesterolemia: Yes Hx Hypertension: Yes - PULMONARY Hx Respiratory Disorders: Yes (home o2/nebulizer machine) Hx Chronic Obstructive Pulmonary Disease (COPD): Yes Other/Comment: pulmonary htn - NEUROLOGICAL Hx Neurological Disorder: No - HEENT Hx HEENT Problems: Yes ([place] doesn't use her hearing aids) Hx Cataracts: Yes (b/l sx) - ENDOCRINE/METABOLIC Hx Endocrine Disorders: Yes Hx Hypothyroidism: Yes - HEMATOLOGICAL/ONCOLOGICAL Hx Blood Transfusions: No - INTEGUMENTARY Hx Dermatological Problems: Yes Other/Comment: multiple skin discolorations b/l arms, multiple small brown sports to skin on back, b/l bunyons, tetanus shot 01/17/17 from cat bite - MUSCULOSKELETAL/RHEUMATOLOGICAL Hx Musculoskeletal Disorders: No Hx Falls: No - GASTROINTESTINAL Hx Gastrointestinal Disorders: Yes Other/Comment: heartburn from "pulmonary htn meds adempas and uptravi." - GENITOURINARY/GYNECOLOGICAL Hx Genitourinary Disorders: Yes Hx Incontinence: Yes (at times due to lasix & frequency) Other/Comment: slight burning on urination "now & then" - PSYCHIATRIC Hx Psychophysiologic Disorder: Yes Hx Anxiety: Yes Hx Depression: Yes Hx Substance Use: No - SURGICAL HISTORY Hx Surgeries: Yes Other/Comment: D&C, colon polyps - ANESTHESIA Hx Anesthesia: Yes Hx Anesthesia Reactions: No Hx Malignant Hyperthermia: No Meds Allergies/Adverse Reactions: Allergies Allergy/AdvReac Type Severity Reaction Status Date / Time amoxicillin Allergy URTICARIA Verified 08/28/18 05:57 Penicillins Allergy URTICARIA Verified 08/28/18 05:57 Physical Exam - Constitutional Appears: Well - Head Exam Head Exam: ATRAUMATIC, NORMAL INSPECTION, NORMOCEPHALIC - Eye Exam Eye Exam: EOMI, Normal appearance, PERRL Pupil Exam: NORMAL ACCOMODATION, PERRL - ENT Exam ENT Exam: Mucous Membranes Moist, Normal Exam - Neck Exam Neck exam: Positive for: Normal Inspection - Respiratory Exam Respiratory Exam: Clear to Auscultation Bilateral, NORMAL BREATHING PATTERN - Cardiovascular Exam Cardiovascular Exam: REGULAR RHYTHM - GI/Abdominal Exam GI & Abdominal Exam: Normal Bowel Sounds, Soft. absent: Distended, Firm, Guarding, Rebound, Tenderness - Rectal Exam Rectal Exam: NORMAL INSPECTION - Extremities Exam Extremities exam: Positive for: normal inspection. Negative for: calf tenderness - Back Exam Back exam: NORMAL INSPECTION - Neurological Exam Neurological exam: Alert, Oriented x3 - Psychiatric Exam Psychiatric exam: Normal Affect, Normal Mood - Skin Skin Exam: Dry, Intact, Normal Color, Warm Results - Vital Signs Recent Vital Signs: Last Vital Signs Temp 98.7 F 08/28/18 14:00 Pulse 69 08/28/18 16:28 Resp 16 08/28/18 16:28 BP 114/66 08/28/18 14:00 Pulse Ox 96 08/28/18 14:00 - Labs Result Diagrams: 08/28/18 07:00 08/28/18 07:00 Labs: Laboratory Results - last 24 hr 08/28/18 08/28/18 08/28/18 07:00 07:00 07:00 WBC 10.4 RBC 3.77 Hgb 10.9 L Hct 35.1 L MCV 93.1 MCH 28.9 MCHC 31.1 RDW 14.4 Plt Count 345 MPV 8.5 PT 12.1 INR 1.05 APTT 28.2 D-Dimer, Quantitative 210 Sodium 139 Potassium 3.1 L Chloride 102 Carbon Dioxide 30 Anion Gap 10 BUN 14 Creatinine 1.2 Est GFR ( Amer) 52 Est GFR (Non-Af Amer) 43 Random Glucose 131 H Calcium 9.0 Total Bilirubin 0.6 AST 25 ALT 23 Alkaline Phosphatase 69 Lactate Dehydrogenase 463 Total Creatine Kinase 160 Troponin I < 0.01 NT-Pro-B Natriuret Pep 490 H Total Protein 7.1 Albumin 4.1 Globulin 3.0 Albumin/Globulin Ratio 1.4 Lipase 08/28/18 07:00 WBC RBC Hgb Hct MCV MCH MCHC RDW Plt Count MPV PT INR APTT D-Dimer, Quantitative Sodium Potassium Chloride Carbon Dioxide Anion Gap BUN Creatinine Est GFR ( Amer) Est GFR (Non-Af Amer) Random Glucose Calcium Total Bilirubin AST ALT Alkaline Phosphatase Lactate Dehydrogenase Total Creatine Kinase Troponin I NT-Pro-B Natriuret Pep Total Protein Albumin Globulin Albumin/Globulin Ratio Lipase 116 Assessment & Plan - Assessment and Plan (Free Text) Assessment: 83 y/o F with PMHx of COPD on 3L home O2, pulm HTN, HTN, HLD, hypothyroidism, depression, anxiety admitted for abdominal pain 2/2 acute cholecystitis Plan: Acute cholecystitis Abd u/s reveals gallstones with GB wall thickening/pericholecystic fluid presumptive evidence for acute cholecystitis Lipase/LFTs wnl Consult surgery: No acute surgical intervention at this time Begin empiric ciprofloxacin, IVF, CLD Hx of Pulm HTN continue home Uptravi and Adempas continue home lasix Hx of COPD Duonebs continue home Spiriva Hx of HLD Continue atorvastatin Hx of Depression Continue escitalopram, xanax Hx of hypothyroidism continue home levothyroxine DVT/GI: LVX/PTX Case seen, examined and discussed with attending physician, Dr Baudilio Palacios PGY1 <Alicja Astudillo - Last Filed: 08/28/18 18:45> Results - Vital Signs Recent Vital Signs: Last Vital Signs Temp 98.7 F 08/28/18 14:00 Pulse 69 08/28/18 16:28 Resp 16 08/28/18 16:28 BP 114/66 08/28/18 14:00 Pulse Ox 96 08/28/18 14:00 - Labs Result Diagrams: 08/28/18 07:00 08/28/18 07:00 Labs: Laboratory Results - last 24 hr 08/28/18 08/28/18 08/28/18 07:00 07:00 07:00 WBC 10.4 RBC 3.77 Hgb 10.9 L Hct 35.1 L MCV 93.1 MCH 28.9 MCHC 31.1 RDW 14.4 Plt Count 345 MPV 8.5 PT 12.1 INR 1.05 APTT 28.2 D-Dimer, Quantitative 210 Sodium 139 Potassium 3.1 L Chloride 102 Carbon Dioxide 30 Anion Gap 10 BUN 14 Creatinine 1.2 Est GFR ( Amer) 52 Est GFR (Non-Af Amer) 43 Random Glucose 131 H Calcium 9.0 Total Bilirubin 0.6 AST 25 ALT 23 Alkaline Phosphatase 69 Lactate Dehydrogenase 463 Total Creatine Kinase 160 Troponin I < 0.01 NT-Pro-B Natriuret Pep 490 H Total Protein 7.1 Albumin 4.1 Globulin 3.0 Albumin/Globulin Ratio 1.4 Lipase 08/28/18 07:00 WBC RBC Hgb Hct MCV MCH MCHC RDW Plt Count MPV PT INR APTT D-Dimer, Quantitative Sodium Potassium Chloride Carbon Dioxide Anion Gap BUN Creatinine Est GFR ( Amer) Est GFR (Non-Af Amer) Random Glucose Calcium Total Bilirubin AST ALT Alkaline Phosphatase Lactate Dehydrogenase Total Creatine Kinase Troponin I NT-Pro-B Natriuret Pep Total Protein Albumin Globulin Albumin/Globulin Ratio Lipase 116 Attending/Attestation - Attestation I have personally seen and examined this patient.: Yes I have fully participated in the care of the patient.: Yes I have reviewed all pertinent clinical information: Yes Notes (Text): Patient seen and examined by me with resident at 11AM on 1/14/19. Case including HPI, physical exam, and assessment and plan discussed with resident. Agree with above with following additions/corrections. Patient is an 83-year-old female past medical history significant for chronic respiratory failure secondary to pulmonary hypertension and COPD on 3 L of home oxygen, hypothyroidism, hypertension, cat bite, hypercholesterolemia, and depression that presents to the emergency room with right upper quadrant and epigastric abdominal pain. Patient states this started last night. She states that the pain started on the right side of her abdomen and radiated to her epigastric region. Patient tried a heating pad with no relief. Patient states that the pain is a "burning pain and hot feeling" and is constant. Patient states that she did have nausea and vomiting yesterday. States that she threw up water. She states that she has not been able to eat since 3 PM yesterday. Patient feels nauseous with eating. Patient denies any chest pain or shortness of breath. No palpitations. No headaches or dizziness. No fevers or chills. No lightheadedness. Patient states she has some burning with urination but no pain. No diarrhea or constipation. Patient states that the pain has resolved since being in the hospital. 12 point review of systems reviewed by me. Please see above HPI, all other systems negative. Physical exam: General: Awake and alert lying in bed in no acute distress HEENT: Normocephalic, atraumatic. Extraocular muscles intact, pupils equal and r eactive, no scleral icterus. Oropharynx is pink and moist. No pharyngeal erythema or exudate appreciated. Neck is supple. Cardiovascular: Regular rhythm. Normal S1 and S2. No murmurs, rubs, or gallops appreciated Pulmonary: Normal respiratory effort. Decreased breath sounds. No rhonchi, rales, or wheezing appreciated. Gastrointestinal: Soft, nondistended. Nontender with deep palpation. Positive b owel sounds all 4 quadrants. No guarding. Negative Walsh's sign. Musculoskeletal: Moves all extremities. No calf tenderness. No edema appreciated. No CVA tenderness. Central nervous system: AAOx3, CN 2-12 grossly intact. Dermatologic: Skin warm and dry. Assessment and plan: Patient is an 83-year-old female past medical history significant for chronic respiratory failure secondary to pulmonary hypertension and COPD on 3 L of home oxygen, hypothyroidism, hypertension, cat bite, hypercholesterolemia, and depression that presents to the emergency room with right upper quadrant and epigastric abdominal pain. 1. Right upper quadrant abdominal pain. Epigastric pain. Possible cholecystitis. Gallbladder ultrasound per radiologist showed gallstones, gallbladder wall thickening/pericholecystic fluid presumptive evidence for acute cholecystitis. Pain resolved. Surgical team following. Patient placed on liquid diet per surgical team. No surgical intervention currently recommended. Continue Pr otonix. 2. Burning with urination. Follow up urinalysis and urine culture. 3. Chronic respiratory failure secondary to COPD and pulmonary hypertension. She is on home oxygen. Continue O2 via nasal cannula. Continue home medications of Spiriva, Uptravi, and Adempas. Place on nebulizer treatments as needed. 4. Hypothyroidism. Continue home Synthroid. 5. Hyperlipidemia. Patient on simvastatin at home. Not on formulary here. Place on Lipitor here. 6. Hypertension. Continue home lasix. 7. GERD. Continue home Protonix. 8. Depression and anxiety. Continue home Xanax and Lexapro. 9. GI/DVT prophylaxis. Protonix/Lovenox. 10. Patient states she has an advanced directive and she is DNR/DNI. Case was discussed in detail with the patient regarding her diagnosis and treatment plan. All questions answered.
[2018-08-28] MEDS: UPTRAVI PO SCH (18:40)
[2018-08-28] MEDS: ADEMPAS 2.5 MG PO SCH (18:41)
[2018-08-28] MEDS: Sodium Chloride 0.9% 1,000 ML IV SCH (18:47)
[2018-08-28] MEDS: Tiotropium 18 mcg Cap For Inhalation IH SCH (18:47)
[2018-08-28] MEDS ORDERED: Ciprofloxacin 400mg/200ml D5W 400 MG/200 ML BAG IVPB SCH (22:00)
[2018-08-29] MEDS ORDERED: Pantoprazole 40 mg EC Tab PO SCH (06:00)
[2018-08-29] MEDS: UPTRAVI PO SCH ×2 (06:09→17:29)
[2018-08-29] MEDS: Levothyroxine 100 MCG TAB PO SCH (06:09)
[2018-08-29 07:24] LABS: EOS # 0.1 (0.0-0.7); EOS % 2.8 % (1.5-5.0); GRAN # 2.32 (1.4-6.5); GRAN % 58.4 % (50.0-68.0); HEMOGLOBIN 9.5 g/dL (12.0-16.0); LYMPH # 0.9 (1.2-3.4); LYMPH % 22.4 % (22.0-35.0); MEAN CELL VOLUME 94.3 fl (80.0-105.0); MEAN CORPUSCULAR HEMOGLOBIN 28.4 pg (25.0-35.0); MEAN CORPUSCULAR HGB CONC 30.2 g/dl (31.0-37.0); MEAN PLATELET VOLUME 8.4 fl (7.0-11.0); MONO # 0.7 (0.1-0.6); MONO % 16.4 % (1.0-6.0); RBC 3.34 10^6/uL (3.5-6.1); RED CELL DISTRIBUTION WIDTH 14.4 % (11.5-14.5)
[2018-08-29 07:50] LABS: ALB/GLOB RATIO 1.2 (1.1-1.8); ALBUMIN 3.2 g/dL (3.0-4.8); CALCIUM 8.3 mg/dL (8.4-10.5)
--- NOTE | 2018-08-29 09:12 | CP.PCM.PN ---
<MarEmeka - Last Filed: 08/29/18 12:12> Subjective - Date & Time of Evaluation Date of Evaluation: 08/29/18 Time of Evaluation: 09:14 - Subjective Subjective: Surgery progress note Patient seen and examined at bedside. Abdominal pain has improved. Denied fever, chills, N/V/D. Objective - Vital Signs/Intake and Output Vital Signs (last 24 hours): Temp Pulse Resp BP Pulse Ox 98.7 F 76 20 113/66 96 08/29/18 06:00 08/29/18 06:00 08/29/18 06:00 08/29/18 06:00 08/29/18 06:00 Intake and Output: 08/29/18 08/29/18 06:59 18:59 Intake Total 360 Balance 360 - Medications Medications: Current Medications Albuterol/Ipratropium (Duoneb 3 Mg/0.5 Mg (3 Ml) Ud) 3 ml IH [id number] PRN PRN Reason: Shortness of Breath Alprazolam (Xanax) 0.25 mg PO HS [facility]; Protocol Stop: 09/04/18 22:01 Last Admin: 08/28/18 22:02 Dose: 0.25 mg Atorvastatin Calcium (Lipitor) 20 mg PO DIN [facility] Last Admin: 08/28/18 18:39 Dose: 20 mg Enoxaparin Sodium (Lovenox) 30 mg SC DAILY [facility]; Protocol Escitalopram Oxalate (Lexapro) 20 mg PO DAILY [facility] Last Admin: 08/28/18 18:46 Dose: 20 mg Furosemide (Lasix) 40 mg PO DAILY [facility] Home Med (Home Med) 1 unit PO TID [facility] Last Admin: 08/28/18 18:41 Dose: 1 unit Home Med (Home Med) 1 unit PO Q12H [facility] Last Admin: 08/29/18 06:09 Dose: 1 unit Sodium Chloride (Sodium Chloride 0.9%) 1,000 mls @ 75 mls/hr IV .[id number] [facility] Last Admin: 08/28/18 18:47 Dose: 75 mls/hr Levothyroxine Sodium (Synthroid) 100 mcg PO 0600 [facility] Last Admin: 08/29/18 06:09 Dose: 100 mcg Pantoprazole Sodium (Protonix Inj) 40 mg IVP DAILY [facility] Last Admin: 08/28/18 18:47 Dose: 40 mg Tiotropium [place] (Spiriva) 18 mcg IH DAILY [facility] Last Admin: 08/28/18 18:47 Dose: 18 mcg - Labs Labs: 08/29/18 07:00 08/29/18 07:00 PT 12.1 SECONDS (9.4-12.5) 08/28/18 07:00 INR 1.05 08/28/18 07:00 APTT 28.2 Seconds (25.1-36.5) 08/28/18 07:00 - Constitutional Appears: Well, Non-toxic, No Acute Distress - Head Exam Head Exam: ATRAUMATIC, NORMAL INSPECTION, NORMOCEPHALIC - Eye Exam Eye Exam: EOMI, Normal appearance, PERRL Pupil Exam: NORMAL ACCOMODATION, PERRL - ENT Exam ENT Exam: Mucous Membranes Moist, Normal Exam - Respiratory Exam Respiratory Exam: Clear to Ausculation Bilateral, NORMAL BREATHING PATTERN - Cardiovascular Exam Cardiovascular Exam: REGULAR RHYTHM, +S1, +S2. absent: Murmur - GI/Abdominal Exam GI & Abdominal Exam: Soft, Normal Bowel Sounds. absent: Tenderness, Organomegaly - Extremities Exam Extremities Exam: Full ROM, Normal Capillary Refill, Normal Inspection. absent: Joint Swelling, Pedal Edema - Back Exam Back Exam: NORMAL INSPECTION - Neurological Exam Neurological Exam: Alert, Awake, Oriented x3 - Psychiatric Exam Psychiatric exam: Normal Affect, Normal Mood - Skin Skin Exam: Dry, Intact, Normal Color, Warm Assessment and Plan - Assessment and Plan (Free Text) Assessment: 83 y/o female with RUQ/epigastric abd pain x1 day. Patient afebrile, no leukocytosis, in NAD COPD HTN HLD Hypothyroidism Depression GERD Pulmonary HTN Plan: -AST/ALT/ALP/T-bili elevation from 25//69/1 to 461/181/154/1 respectively since yesterday -HIDA scan -U/S abd: gall bladder wall thickening with pericholecystic fluid. CBD 4.2 -continue PPI, IVF -clear liquid diet -no acute surgical intervention at this time -continued management per primary team -further recs per surgical attending Dr. Sal Manuel, DO <Andres Huang - Last Filed: 09/01/18 20:41> Objective - Vital Signs/Intake and Output Vital Signs (last 24 hours): Temp Pulse Resp BP Pulse Ox 98.2 F 66 18 98/60 L 92 L 09/01/18 06:00 09/01/18 06:00 09/01/18 06:00 09/01/18 10:05 09/01/18 06:00 - Labs Labs: 08/31/18 05:30 08/31/18 05:30 PT 12.1 SECONDS (9.4-12.5) 08/28/18 07:00 INR 1.05 08/28/18 07:00 APTT 28.2 Seconds (25.1-36.5) 08/28/18 07:00 Attending/Attestation - Attestation I have personally seen and examined this patient.: Yes I have fully participated in the care of the patient.: Yes I have reviewed all pertinent clinical information, including history, physical exam and plan: Yes Notes (Text): Pt was seen and examined at bedside Agree with above note and assessment Pt is improving clinically Mild abdomina pain f.u HIDA IV antibiotics c.w current mx Plan d.w pt in detail Risk and benefit explained in detail.
[2018-08-29] MEDS: Sodium Chloride 0.9% 1,000 ML IV SCH (09:19)
[2018-08-29] MEDS ORDERED: Levothyroxine 100 MCG TAB PO SCH (10:00)
[2018-08-29] MEDS: Tiotropium 18 mcg Cap For Inhalation IH SCH (10:40)
[2018-08-29] MEDS: Enoxaparin 30 mg Syringe SC SCH (10:40)
[2018-08-29] MEDS: ADEMPAS 2.5 MG PO SCH ×3 (10:41→17:29)
--- NOTE | 2018-08-29 11:13 | CARD ---
APPROVED REPORT Date of service: 08/28/2018 EKG Measurement Heart [id number] <Conclusion> Normal sinus rhythm with sinus arrhythmia Low voltage QRS Nonspecific ST and T wave abnormality Prolonged QT Abnormal ECG
--- NOTE | 2018-08-29 11:54 | CP.PCM.APN ---
Subjective - Date & Time of Evaluation Date of Evaluation: 08/29/18 Time of Evaluation: 12:00 - Subjective Subjective: Pt seen and examined at bedside. Sleeping but easily arousable. Pt in no acute distress. Denies abdominal pain, nausea or vomiting. Objective - Vital Signs/Intake and Output Vital Signs (last 24 hours): Temp Pulse Resp BP Pulse Ox 98.7 F 76 20 113/66 96 08/29/18 06:00 08/29/18 06:00 08/29/18 06:00 08/29/18 10:40 08/29/18 06:00 Intake and Output: 08/29/18 08/29/18 06:59 18:59 Intake Total 360 Balance 360 - Medications Medications: Current Medications Albuterol/Ipratropium (Duoneb 3 Mg/0.5 Mg (3 Ml) Ud) 3 ml IH [id number] PRN PRN Reason: Shortness of Breath Alprazolam (Xanax) 0.25 mg PO HS [facility]; Protocol Stop: 09/04/18 22:01 Last Admin: 08/28/18 22:02 Dose: 0.25 mg Atorvastatin Calcium (Lipitor) 20 mg PO DIN [facility] Last Admin: 08/28/18 18:39 Dose: 20 mg Enoxaparin Sodium (Lovenox) 30 mg SC DAILY [facility]; Protocol Last Admin: 08/29/18 10:40 Dose: 30 mg Escitalopram Oxalate (Lexapro) 20 mg PO DAILY [facility] Last Admin: 08/29/18 10:40 Dose: 20 mg Furosemide (Lasix) 40 mg PO DAILY [facility] Last Admin: 08/29/18 10:40 Dose: 40 mg Home Med (Home Med) 1 unit PO TID [facility] Last Admin: 08/29/18 10:41 Dose: 1 unit Home Med (Home Med) 1 unit PO Q12H [facility] Last Admin: 08/29/18 06:09 Dose: 1 unit Sodium Chloride (Sodium Chloride 0.9%) 1,000 mls @ 75 mls/hr IV .[id number] [facility] Last Admin: 08/29/18 09:19 Dose: 75 mls/hr Levothyroxine Sodium (Synthroid) 100 mcg PO 0600 [facility] Last Admin: 08/29/18 06:09 Dose: 100 mcg Pantoprazole Sodium (Protonix Inj) 40 mg IVP DAILY [facility] Last Admin: 08/29/18 10:41 Dose: 40 mg Tiotropium [place] (Spiriva) 18 mcg IH DAILY [facility] Last Admin: 08/29/18 10:40 Dose: 18 mcg - Labs Labs: 08/29/18 07:00 08/29/18 07:00 PT 12.1 SECONDS (9.4-12.5) 08/28/18 07:00 INR 1.05 08/28/18 07:00 APTT 28.2 Seconds (25.1-36.5) 08/28/18 07:00 - Constitutional Appears: Well, No Acute Distress - Head Exam Head Exam: ATRAUMATIC - Eye Exam Eye Exam: Normal appearance - Neck Exam Neck Exam: Full ROM - Respiratory Exam Respiratory Exam: Clear to Ausculation Bilateral, NORMAL BREATHING PATTERN - Cardiovascular Exam Cardiovascular Exam: REGULAR RHYTHM, +S1, +S2 - GI/Abdominal Exam GI & Abdominal Exam: Soft, Normal Bowel Sounds - Rectal Exam Rectal Exam: Deferred - Back Exam Back Exam: NORMAL INSPECTION - Neurological Exam Neurological Exam: Alert, Awake, Oriented x3 Assessment and Plan - Assessment and Plan (Free Text) Assessment: Pt is an 83 y.o. female with pmhx of copd, pulmonary htn, hld, hypothyroid and HTn who presented in ED for CP, sob, RUQ pain with nausea and vomiting. Her troponin was negative. She is being worked up for possible acute cholecystitis. ITS Impressions Chest X-Ray 08/28/18 06:43 IMPRESSION: No active disease. Gallbladder Ultrasound 08/28/18 07:56 IMPRESSION: Gallstones. Gallbladder wall thickening/pericholecystic fluid presumptive evidence for acute cholecystitis. Plan: Pending HIDA scan On clear liquid diet/IVF Surgery on consult Meds per MAR Will continue to follow
--- NOTE | 2018-08-29 15:54 | CP.PCM.PN ---
<Neto Palacios - Last Filed: 08/29/18 15:49> Subjective - Date & Time of Evaluation Date of Evaluation: 08/29/18 Time of Evaluation: 15:49 - Subjective Subjective: INTERNAL MEDICINE PROGRESS NOTE FOR DR. NELIA Palacios Pt seen and examined at bedside this am. No acute nursing events overnight. Pt reports abdominal pain this am. She reports improvement in nausea/vomiting. She denies fevers, chills, headache, dizziness, chest pain, palpitations, shortness of breath, constipation, diarrhea, dysuria. Objective - Vital Signs/Intake and Output Vital Signs (last 24 hours): Temp Pulse Resp BP Pulse Ox 98.7 F 76 20 113/66 96 08/29/18 06:00 08/29/18 06:00 08/29/18 06:00 08/29/18 10:40 08/29/18 06:00 Intake and Output: 08/29/18 08/29/18 06:59 18:59 Intake Total 360 Balance 360 - Medications Medications: Current Medications Albuterol/Ipratropium (Duoneb 3 Mg/0.5 Mg (3 Ml) Ud) 3 ml IH [id number] PRN PRN Reason: Shortness of Breath Alprazolam (Xanax) 0.25 mg PO HS [facility]; Protocol Stop: 09/04/18 22:01 Last Admin: 08/28/18 22:02 Dose: 0.25 mg Atorvastatin Calcium (Lipitor) 20 mg PO DIN [facility] Last Admin: 08/28/18 18:39 Dose: 20 mg Enoxaparin Sodium (Lovenox) 30 mg SC DAILY [facility]; Protocol Last Admin: 08/29/18 10:40 Dose: 30 mg Escitalopram Oxalate (Lexapro) 20 mg PO DAILY [facility] Last Admin: 08/29/18 10:40 Dose: 20 mg Furosemide (Lasix) 40 mg PO DAILY [facility] Last Admin: 08/29/18 10:40 Dose: 40 mg Home Med (Home Med) 1 unit PO TID [facility] Last Admin: 08/29/18 14:27 Dose: 1 unit Home Med (Home Med) 1 unit PO Q12H [facility] Last Admin: 08/29/18 06:09 Dose: 1 unit Sodium Chloride (Sodium Chloride 0.9%) 1,000 mls @ 75 mls/hr IV .[id number] [facility] Last Admin: 08/29/18 09:19 Dose: 75 mls/hr Levothyroxine Sodium (Synthroid) 100 mcg PO 0600 [facility] Last Admin: 08/29/18 06:09 Dose: 100 mcg Pantoprazole Sodium (Protonix Inj) 40 mg IVP DAILY [facility] Last Admin: 08/29/18 10:41 Dose: 40 mg Tiotropium [place] (Spiriva) 18 mcg IH DAILY [facility] Last Admin: 08/29/18 10:40 Dose: 18 mcg - Labs Labs: 08/29/18 07:00 08/29/18 07:00 PT 12.1 SECONDS (9.4-12.5) 08/28/18 07:00 INR 1.05 08/28/18 07:00 APTT 28.2 Seconds (25.1-36.5) 08/28/18 07:00 - Constitutional Appears: Well, Non-toxic, No Acute Distress - Head Exam Head Exam: NORMAL INSPECTION, NORMOCEPHALIC - Eye Exam Eye Exam: EOMI, Normal appearance - ENT Exam ENT Exam: Mucous Membranes Moist, Normal Exam - Neck Exam Neck Exam: Normal Inspection - Respiratory Exam Respiratory Exam: Clear to Ausculation Bilateral, NORMAL BREATHING PATTERN - Cardiovascular Exam Cardiovascular Exam: REGULAR RHYTHM, +S1, +S2 - GI/Abdominal Exam GI & Abdominal Exam: Soft, Tenderness. absent: Guarding, Rigid - Extremities Exam Extremities Exam: Normal Inspection. absent: Calf Tenderness - Back Exam Back Exam: NORMAL INSPECTION - Neurological Exam Neurological Exam: Alert, Awake, Oriented x3 - Psychiatric Exam Psychiatric exam: Normal Affect, Normal Mood - Skin Skin Exam: Dry, Intact, Warm Assessment and Plan - Assessment and Plan (Free Text) Assessment: 83 y/o F with PMHx of COPD 3L home O2, chronic respiratory failure 2/2 pulm HTN, HTN, HLD, hypothyroidism, depression, anxiety admitted for RUQ abdominal pain 2/2 acute cholecystitis Plan: Acute cholecystitis Abd u/s reveals gallstones with GB wall thickening/pericholecystic fluid presumptive evidence for acute cholecystitis LFTs acutely elevated today Surgery: No acute surgical intervention at this time Will do HIDA scan today Lipase wnl Continue empiric ciprofloxacin, IVF, CLD Pulm HTN continue home Uptravi and Adempas continue home lasix COPD Duonebs continue home Spiriva HLD Continue atorvastatin Depression Continue escitalopram, xanax Hypothyroidism continue home levothyroxine DVT/GI: LVX/PTX Case seen, examined and discussed with attending physician, Dr Nelia Palacios PGY1 <Alicja Astudillo R - Last Filed: 08/30/18 07:52> Objective - Vital Signs/Intake and Output Vital Signs (last 24 hours): Temp Pulse Resp BP Pulse Ox 99.4 F 78 20 92/53 L 90 L 08/29/18 21:20 08/29/18 21:20 08/29/18 06:00 08/29/18 21:20 08/29/18 21:20 Intake and Output: 08/30/18 08/30/18 06:59 18:59 Intake Total 120 Balance 120 - Medications Medications: Current Medications Albuterol/Ipratropium (Duoneb 3 Mg/0.5 Mg (3 Ml) Ud) 3 ml IH [id number] PRN PRN Reason: Shortness of Breath Alprazolam (Xanax) 0.25 mg PO HS [facility]; Protocol Stop: 09/04/18 22:01 Last Admin: 08/29/18 22:02 Dose: 0.25 mg Atorvastatin Calcium (Lipitor) 20 mg PO DIN [facility] Last Admin: 08/29/18 17:29 Dose: 20 mg Enoxaparin Sodium (Lovenox) 30 mg SC DAILY [facility]; Protocol Last Admin: 08/29/18 10:40 Dose: 30 mg Escitalopram Oxalate (Lexapro) 20 mg PO DAILY [facility] Last Admin: 08/29/18 10:40 Dose: 20 mg Furosemide (Lasix) 40 mg PO DAILY [facility] Last Admin: 08/29/18 10:40 Dose: 40 mg Home Med (Home Med) 1 unit PO TID [facility] Last Admin: 08/29/18 17:29 Dose: 1 unit Home Med (Home Med) 1 unit PO Q12H [facility] Last Admin: 08/30/18 05:45 Dose: 1 unit Sodium Chloride (Sodium Chloride 0.9%) 1,000 mls @ 75 mls/hr IV .[id number] [facility] Last Admin: 08/29/18 09:19 Dose: 75 mls/hr Levothyroxine Sodium (Synthroid) 100 mcg PO 0600 [facility] Last Admin: 08/30/18 05:45 Dose: 100 mcg Pantoprazole Sodium (Protonix Inj) 40 mg IVP DAILY [facility] Last Admin: 08/29/18 10:41 Dose: 40 mg Tiotropium [place] (Spiriva) 18 mcg IH DAILY [facility] Last Admin: 08/29/18 10:40 Dose: 18 mcg - Labs Labs: 08/30/18 07:00 08/29/18 07:00 PT 12.1 SECONDS (9.4-12.5) 08/28/18 07:00 INR 1.05 08/28/18 07:00 APTT 28.2 Seconds (25.1-36.5) 08/28/18 07:00 Attending/Attestation - Attestation I have personally seen and examined this patient.: Yes I have fully participated in the care of the patient.: Yes I have reviewed all pertinent clinical information, including history, physical exam and plan: Yes Notes (Text): Patient seen and examined by me with resident at 11:30AM on 08/29/18. Case including HPI, physical exam, and assessment and plan discussed with resident. Agree with above with following additions/corrections. Patient is an 83-year-old female past medical history significant for chronic respiratory failure secondary to pulmonary hypertension and COPD on 3 L of home oxygen, hypothyroidism, hypertension, cat bite, hypercholesterolemia, and depression that presents to the emergency room with right upper quadrant and epigastric abdominal pain. Patient states she is feeling better today. Still having some right upper quadrant pain with palpation. Patient is tolerating clear liquid diet. Patient denies any headaches or dizziness. No fevers or chills. No lightheadedness. No burning with urination today. No dysuria. Physical exam: General: Awake and alert lying in bed in no acute distress HEENT: Normocephalic, atraumatic. Extraocular muscles intact, pupils equal and reactive, no scleral icterus. Oropharynx is pink and moist. No pharyngeal erythema or exudate appreciated. Neck is supple. Cardiovascular: Regular rhythm. Normal S1 and S2. No murmurs, rubs, or gallops appreciated Pulmonary: Normal respiratory effort. Decreased breath sounds. No rhonchi, rales, or wheezing appreciated. Gastrointestinal: Soft, nondistended. Positive right upper quadrant tenderness. Positive bowel sounds all 4 quadrants. No guarding. Negative Walsh's sign. Musculoskeletal: Moves all extremities. No calf tenderness. No edema appreciated. No CVA tenderness. Central nervous system: AAOx3, CN 2-12 grossly intact. Dermatologic: Skin warm and dry. Assessment and plan: Patient is an 83-year-old female past medical history significant for chronic respiratory failure secondary to pulmonary hypertension and COPD on 3 L of home oxygen, hypothyroidism, hypertension, cat bite, hypercholesterolemia, and depression that presents to the emergency room with right upper quadrant and epigastric abdominal pain. 1. Right upper quadrant abdominal pain. Epigastric pain. Possible cholecystitis. Follow up HIDA scan. Possibly passing stone as patient has transaminits. Gallbladder ultrasound per radiologist showed gallstones, gallbladder wall thickening/pericholecystic fluid presumptive evidence for acute cholecystitis. Surgical team following, no surgical intervention currently recommended by surgical team. Tolerating liquid diet. Continue Protonix. 2. Transaminits. ?secondary to gallstone. HIDA scan pending. GI consulted. 3. Burning with urination. Improved. Pending urinalysis and urine culture. 4. Chronic respiratory failure secondary to COPD and pulmonary hypertension. She is on home oxygen. Continue O2 via nasal cannula. Continue home medications of S piriva, Uptravi, and Adempas. Continue nebulizer treatments as needed. 5. Hypothyroidism. Continue Synthroid. 6. Hyperlipidemia. Patient on simvastatin at home. Not on formulary here. Continue Lipitor here. 7. Hypertension. Continue lasix. 8. GERD. Continue Protonix. 9. Depression and anxiety. Continue home Xanax and Lexapro. 10. GI/DVT prophylaxis. Protonix/Lovenox. 11. Patient states she has an advanced directive and she is DNR/DNI. Case was discussed in detail with the patient regarding her diagnosis and treatment plan. All questions answered.
[2018-08-30] MEDS: Levothyroxine 100 MCG TAB PO SCH (05:45)
[2018-08-30] MEDS: UPTRAVI PO SCH ×2 (05:45→17:47)
[2018-08-30 07:31] LABS: BASO # 0.01 K/mm3 (0.0-2.0); BASO % 0.3 % (0.0-3.0); EOS # 0.2 (0.0-0.7); EOS % 4.8 % (1.5-5.0); GRAN # 1.92 (1.4-6.5); GRAN % 48.6 % (50.0-68.0); HEMOGLOBIN 9.5 g/dL (12.0-16.0); LYMPH # 1.3 (1.2-3.4); LYMPH % 32.4 % (22.0-35.0); MEAN CELL VOLUME 94.7 fl (80.0-105.0); MEAN CORPUSCULAR HEMOGLOBIN 28.2 pg (25.0-35.0); MEAN CORPUSCULAR HGB CONC 29.8 g/dl (31.0-37.0); MEAN PLATELET VOLUME 8.8 fl (7.0-11.0); MONO # 0.6 (0.1-0.6); MONO % 13.9 % (1.0-6.0); RBC 3.37 10^6/uL (3.5-6.1); RED CELL DISTRIBUTION WIDTH 14.6 % (11.5-14.5)
[2018-08-30 08:08] LABS: ALB/GLOB RATIO 1.2 (1.1-1.8); ALBUMIN 3.2 g/dL (3.0-4.8); CALCIUM 8.4 mg/dL (8.4-10.5)
[2018-08-30] MEDS: Tiotropium 18 mcg Cap For Inhalation IH SCH (10:54)
[2018-08-30] MEDS: Enoxaparin 30 mg Syringe SC SCH (10:54)
[2018-08-30] MEDS: ADEMPAS 2.5 MG PO SCH ×3 (10:55→17:47)
[2018-08-30] MEDS ORDERED: Potassium Chloride 20 mEq ER Tab PO STA (10:56)
--- NOTE | 2018-08-30 12:12 | CP.PCM.PN ---
<Emeka Manuel - Last Filed: 08/30/18 17:25> Subjective - Date & Time of Evaluation Date of Evaluation: 08/30/18 Time of Evaluation: 10:40 - Subjective Subjective: Surgery progress note Patient seen and examined at bedside. Abdominal pain has improved. Tolerating her diet and having regular BM. Denied fever, chills, N/V/D. Objective - Vital Signs/Intake and Output Vital Signs (last 24 hours): Temp Pulse Resp BP Pulse Ox 98.7 F 73 18 96/46 L 93 L 08/30/18 06:00 08/30/18 06:00 08/30/18 06:00 08/30/18 06:00 08/30/18 06:00 Intake and Output: 08/30/18 08/30/18 06:59 18:59 Intake Total 120 Balance 120 - Medications Medications: Current Medications Albuterol/Ipratropium (Duoneb 3 Mg/0.5 Mg (3 Ml) Ud) 3 ml IH [id number] PRN PRN Reason: Shortness of Breath Alprazolam (Xanax) 0.25 mg PO HS [facility]; Protocol Stop: 09/04/18 22:01 Last Admin: 08/29/18 22:02 Dose: 0.25 mg Atorvastatin Calcium (Lipitor) 20 mg PO DIN [facility] Last Admin: 08/29/18 17:29 Dose: 20 mg Enoxaparin Sodium (Lovenox) 30 mg SC DAILY [facility]; Protocol Last Admin: 08/30/18 10:54 Dose: 30 mg Escitalopram Oxalate (Lexapro) 20 mg PO DAILY [facility] Last Admin: 08/30/18 10:56 Dose: 20 mg Furosemide (Lasix) 40 mg PO DAILY [facility] Last Admin: 08/30/18 11:04 Dose: Not Given Home Med (Home Med) 1 unit PO TID [facility] Last Admin: 08/30/18 10:55 Dose: 1 unit Home Med (Home Med) 1 unit PO Q12H [facility] Last Admin: 08/30/18 05:45 Dose: 1 unit Sodium Chloride (Sodium Chloride 0.9%) 1,000 mls @ 75 mls/hr IV .[id number] [facility] Last Admin: 08/29/18 09:19 Dose: 75 mls/hr Levothyroxine Sodium (Synthroid) 100 mcg PO 0600 [facility] Last Admin: 08/30/18 05:45 Dose: 100 mcg Pantoprazole Sodium (Protonix Inj) 40 mg IVP DAILY [facility] Last Admin: 08/30/18 10:54 Dose: 40 mg Tiotropium [place] (Spiriva) 18 mcg IH DAILY [facility] Last Admin: 08/30/18 10:54 Dose: 18 mcg - Labs Labs: 08/30/18 07:00 08/30/18 07:00 PT 12.1 SECONDS (9.4-12.5) 08/28/18 07:00 INR 1.05 08/28/18 07:00 APTT 28.2 Seconds (25.1-36.5) 08/28/18 07:00 - Constitutional Appears: Well, No Acute Distress - Head Exam Head Exam: ATRAUMATIC, NORMAL INSPECTION, NORMOCEPHALIC - Eye Exam Eye Exam: EOMI, Normal appearance, PERRL Pupil Exam: NORMAL ACCOMODATION, PERRL - ENT Exam ENT Exam: Mucous Membranes Moist, Normal Exam - Respiratory Exam Respiratory Exam: Clear to Ausculation Bilateral, NORMAL BREATHING PATTERN - Cardiovascular Exam Cardiovascular Exam: REGULAR RHYTHM, +S1, +S2. absent: Murmur - GI/Abdominal Exam GI & Abdominal Exam: Soft, Normal Bowel Sounds. absent: Rigid, Tenderness, Hernia, Mass, Organomegaly, Rebound - Extremities Exam Extremities Exam: Full ROM, Normal Capillary Refill, Normal Inspection. absent: Joint Swelling, Pedal Edema - Neurological Exam Neurological Exam: Alert, Awake, Oriented x3 - Psychiatric Exam Psychiatric exam: Normal Affect, Normal Mood - Skin Skin Exam: Dry, Intact, Normal Color, Warm Assessment and Plan - Assessment and Plan (Free Text) Assessment: 83 y/o female with RUQ/epigastric abd pain x1 day. Patient afebrile, no le ukocytosis, in NAD COPD HTN HLD Hypothyroidism Depression GERD Pulmonary HTN Plan: -LFT trending down -HIDA scan positive with cystic duct occlusion -conservative management, patient is a poor surgical candidate given pul HTN, dyspnea on exertion, poor exercise tolerance, oxygen dependent -U/S abd: gall bladder wall thickening with pericholecystic fluid. CBD 4.2 -continue PPI, IVF -full liquid diet -continued management per primary team -further recs per surgical attending Dr. Sal Manuel, DO <Andres Huang - Last Filed: 09/01/18 20:42> Objective - Vital Signs/Intake and Output Vital Signs (last 24 hours): Temp Pulse Resp BP Pulse Ox 98.2 F 66 18 98/60 L 92 L 09/01/18 06:00 09/01/18 06:00 09/01/18 06:00 09/01/18 10:05 09/01/18 06:00 - Labs Labs: 08/31/18 05:30 08/31/18 05:30 PT 12.1 SECONDS (9.4-12.5) 08/28/18 07:00 INR 1.05 08/28/18 07:00 APTT 28.2 Seconds (25.1-36.5) 08/28/18 07:00 Attending/Attestation - Attestation I have personally seen and examined this patient.: Yes I have fully participated in the care of the patient.: Yes I have reviewed all pertinent clinical information, including history, physical exam and plan: Yes Notes (Text): Pt was seen and examined at bedside Agree with above note and assessment Pt is asymptomatic at present HIDA is positive for Cholecystitis Pt is refusing surgery IV antibiotics c.w current mx Plan d.w pt in detail Risk and benefit explained in detail.
--- NOTE | 2018-08-30 12:18 | NM ---
Date of service: 08/29/2018 PROCEDURE: Nuclear Medicine Hepatobiliary Scan HISTORY: Cholecystitis. COMPARISON: August 29, 2018. Abdominal ultrasound. TECHNIQUE: 6.2 mCi of technetium 99m Mebrofenin was administered intravenously. Planar images of the abdomen were obtained at 5 min intervals to 60 mins. Delayed images were also obtained. FINDINGS: LIVER: Timely and homogenous uptake. COMMON BILE DUCT: identified at 15 mins. GALLBLADDER: Not identified at 03:00 hours SMALL BOWEL: Identified at 15 mins. IMPRESSION: Positive hepatobiliary Scan. The cystic duct is occluded, presumptive evidence for acute cholecystitis.
[2018-08-30] MEDS ORDERED: levoFLOXacin 500 mg in D5W 500 MG/100 ML BAG IVPB SCH (13:00)
--- NOTE | 2018-08-30 17:01 | CON ---
DATE: 08/30/2018 REQUESTING PHYSICIAN: Dr. Astudillo. REASON FOR CONSULTATION: I have been asked to see this 83-year-old female, who was admitted to the hospital for abdominal pain in the right upper quadrant and epigastrium. The patient underwent an ultrasound, which showed gallstones, gallbladder wall thickening with some pericholecystic fluid. Hepatobiliary scan shows nonvisualization of the gallbladder. The patient was also noted to have a rise in her liver enzymes, AST greater than ALT, total bilirubin is normal. The patient has a history of advanced COPD requiring home oxygen. She also has a history of pulmonary hypertension and hypertension. PAST MEDICAL HISTORY: As above. Again, she has a history of advanced COPD requiring home oxygen, pulmonary hypertension, hypertension, hypothyroidism, hyperlipidemia, depression. SOCIAL HISTORY: She has smoked one pack of cigarettes per day for over 60 years. She also consumes 4 to 5 glasses of wine on a daily basis. She has done so for over 10 years. FAMILY HISTORY: Unremarkable. REVIEW OF SYSTEMS: Fourteen-point review of systems is notable for epigastric and right upper quadrant abdominal pain. MEDICATIONS: medications at home include Uptravi, Adempas, Levoxyl, simvastatin, furosemide, escitalopram, alprazolam, and pantoprazole PHYSICAL EXAMINATION: GENERAL: Elderly female, lying in bed, in no acute distress. VITAL SIGNS: Reveal a temperature of 98.7, blood pressure 96/46, heart rate of 73. HEENT: Revealed sclerae to be white. Conjunctivae pink. NECK: Supple. CHEST: Lungs are clear. HEART: Exam reveals regular rate and rhythm. ABDOMEN: Soft, nontender, and no mass. EXTREMITIES: Show no edema. LABORATORY DATA: Revealed a white blood cell count of 4, hemoglobin 9.5, platelet count 303,000. Coags are normal. CMP reveals AST 129, this is down from 461 yesterday morning; ALT 108; alkaline phosphatase of 127; total bilirubin of 0.7. IMPRESSION: An 83-year-old female with multiple comorbidities including advance chronic obstructive pulmonary disease requiring home oxygen, pulmonary hypertension, hypothyroidism with epigastric and right upper quadrant pain consistent with acute cholecystitis. She does have a positive hepatobiliary scan for cystic duct obstruction. She does have elevated liver enzymes, which are trending downwards. I suspect that this is secondary to a combination of acute cholecystitis and a component of alcoholic liver disease as her AST is greater than ALT, and she does admit to drinking 4 to 5 glasses of wine daily. RECOMMENDATIONS: Surgical evaluation given her history of lung disease and pulmonary hypertension. She is at increased risk for any surgical procedures. Dirk Jain MD
--- NOTE | 2018-08-30 23:24 | CP.PCM.PN ---
<Neto Palacios - Last Filed: 08/30/18 23:18> Subjective - Date & Time of Evaluation Date of Evaluation: 08/30/18 Time of Evaluation: 13:00 - Subjective Subjective: INTERNAL MEDICINE PROGRESS NOTE FOR DR. BAUDILIO Palacios PGY1 Pt seen and examined at bedside this am. No acute nursing events overnight. Pt reports her abdominal pain is improving. She reports some distention in her abdomen. She otherwise denies 12 point ROS. Objective - Vital Signs/Intake and Output Vital Signs (last 24 hours): Temp Pulse Resp BP Pulse Ox 98.4 F 74 20 99/60 L 93 L 08/30/18 22:00 08/30/18 22:00 08/30/18 22:00 08/30/18 22:00 08/30/18 22:00 - Medications Medications: Current Medications Albuterol/Ipratropium (Duoneb 3 Mg/0.5 Mg (3 Ml) Ud) 3 ml IH [id number] PRN PRN Reason: Shortness of Breath Alprazolam (Xanax) 0.25 mg PO HS [facility]; Protocol Stop: 09/04/18 22:01 Last Admin: 08/30/18 22:12 Dose: 0.25 mg Atorvastatin Calcium (Lipitor) 20 mg PO DIN [facility] Last Admin: 08/30/18 17:47 Dose: 20 mg Enoxaparin Sodium (Lovenox) 30 mg SC DAILY [facility]; Protocol Last Admin: 08/30/18 10:54 Dose: 30 mg Escitalopram Oxalate (Lexapro) 20 mg PO DAILY [facility] Last Admin: 08/30/18 10:56 Dose: 20 mg Furosemide (Lasix) 40 mg PO DAILY [facility] Last Admin: 08/30/18 11:04 Dose: Not Given Home Med (Home Med) 1 unit PO TID [facility] Last Admin: 08/30/18 17:47 Dose: 1 unit Home Med (Home Med) 1 unit PO Q12H [facility] Last Admin: 08/30/18 17:47 Dose: 1 unit Sodium Chloride (Sodium Chloride 0.9%) 1,000 mls @ 75 mls/hr IV .[id number] [facility] Last Admin: 08/29/18 09:19 Dose: 75 mls/hr Levofloxacin/Dextrose (Levaquin 250mg) 250 mg in 50 mls @ 50 mls/hr IVPB DAILY [facility] Levothyroxine Sodium (Synthroid) 100 mcg PO 0600 [facility] Last Admin: 08/30/18 05:45 Dose: 100 mcg Pantoprazole Sodium (Protonix Inj) 40 mg IVP DAILY [facility] Last Admin: 08/30/18 10:54 Dose: 40 mg Tiotropium [place] (Spiriva) 18 mcg IH DAILY [facility] Last Admin: 08/30/18 10:54 Dose: 18 mcg - Labs Labs: 08/30/18 07:00 08/30/18 07:00 PT 12.1 SECONDS (9.4-12.5) 08/28/18 07:00 INR 1.05 08/28/18 07:00 APTT 28.2 Seconds (25.1-36.5) 08/28/18 07:00 - Constitutional Appears: Well, Non-toxic, No Acute Distress - Head Exam Head Exam: NORMAL INSPECTION, NORMOCEPHALIC - Eye Exam Eye Exam: EOMI, Normal appearance - ENT Exam ENT Exam: Mucous Membranes Moist, Normal Exam - Neck Exam Neck Exam: Normal Inspection. absent: Meningismus - Respiratory Exam Respiratory Exam: Rhonchi (b/l), NORMAL BREATHING PATTERN - Cardiovascular Exam Cardiovascular Exam: REGULAR RHYTHM, +S1, +S2 - GI/Abdominal Exam GI & Abdominal Exam: Distended, Soft - Extremities Exam Extremities Exam: Normal Capillary Refill, Normal Inspection. absent: Calf Tenderness - Back Exam Back Exam: NORMAL INSPECTION - Neurological Exam Neurological Exam: Alert, Awake, Oriented x3 - Psychiatric Exam Psychiatric exam: Normal Affect, Normal Mood - Skin Skin Exam: Dry, Intact, Warm Assessment and Plan - Assessment and Plan (Free Text) Assessment: 83 y/o F with PMHx of COPD 3L home O2, chronic respiratory failure 2/2 pulm HTN, HTN, HLD, hypothyroidism, depression, anxiety admitted for RUQ abdominal pain 2/2 acute cholecystitis Plan: Acute cholecystitis Abd u/s reveals gallstones with GB wall thickening/pericholecystic fluid presumptive evidence for acute cholecystitis HIDA: (+) scan, cystic duct is occluded, presumptive evidence for acute cholecystitis LFTs downtrending. Likely 2/2 alcoholic liver disease Surgery: No acute surgical intervention at this time. Pt is high risk for surgical procedures Lipase wnl Continue empiric levofloxacin, IVF, CLD Pulm HTN continue home Uptravi and Adempas. Consider holding d/t hypotension continue home lasix COPD Duonebs continue home Spiriva HLD Continue atorvastatin Depression Continue escitalopram, xanax Hypothyroidism continue home levothyroxine DVT/GI: LVX/PTX Case seen, examined and discussed with attending physician, Dr Baudilio Palacios PGY1 <Alicja Astudillo R - Last Filed: 08/31/18 07:44> Objective - Vital Signs/Intake and Output Vital Signs (last 24 hours): Temp Pulse Resp BP Pulse Ox 100.2 F H 75 20 111/70 94 L 08/31/18 06:00 08/31/18 06:00 08/31/18 06:00 08/31/18 06:00 08/31/18 06:00 - Medications Medications: Current Medications Albuterol/Ipratropium (Duoneb 3 Mg/0.5 Mg (3 Ml) Ud) 3 ml IH [id number] PRN PRN Reason: Shortness of Breath Alprazolam (Xanax) 0.25 mg PO HS [facility]; Protocol Stop: 09/04/18 22:01 Last Admin: 08/30/18 22:12 Dose: 0.25 mg Atorvastatin Calcium (Lipitor) 20 mg PO DIN [facility] Last Admin: 08/30/18 17:47 Dose: 20 mg Enoxaparin Sodium (Lovenox) 30 mg SC DAILY [facility]; Protocol Last Admin: 08/30/18 10:54 Dose: 30 mg Escitalopram Oxalate (Lexapro) 20 mg PO DAILY [facility] Last Admin: 08/30/18 10:56 Dose: 20 mg Furosemide (Lasix) 40 mg PO DAILY [facility] Last Admin: 08/30/18 11:04 Dose: Not Given Home Med (Home Med) 1 unit PO TID [facility] Last Admin: 08/30/18 17:47 Dose: 1 unit Home Med (Home Med) 1 unit PO Q12H [facility] Last Admin: 08/31/18 06:24 Dose: 1 unit Levofloxacin/Dextrose (Levaquin 250mg) 250 mg in 50 mls @ 50 mls/hr IVPB DAILY [facility] Levothyroxine Sodium (Synthroid) 100 mcg PO 0600 [facility] Last Admin: 08/31/18 06:25 Dose: 100 mcg Pantoprazole Sodium (Protonix Inj) 40 mg IVP DAILY [facility] Last Admin: 08/30/18 10:54 Dose: 40 mg Tiotropium [place] (Spiriva) 18 mcg IH DAILY [facility] Last Admin: 08/30/18 10:54 Dose: 18 mcg - Labs Labs: 08/30/18 07:00 08/31/18 05:30 PT 12.1 SECONDS (9.4-12.5) 08/28/18 07:00 INR 1.05 08/28/18 07:00 APTT 28.2 Seconds (25.1-36.5) 08/28/18 07:00 Attending/Attestation - Attestation I have personally seen and examined this patient.: Yes I have fully participated in the care of the patient.: Yes I have reviewed all pertinent clinical information, including history, physical exam and plan: Yes Notes (Text): Patient seen and examined by me with resident at 11:55AM on 08/30/18. Case including HPI, physical exam, and assessment and plan discussed with resident. Agree with above with following additions/corrections. Patient is an 83-year-old female past medical history significant for chronic respiratory failure secondary to pulmonary hypertension and COPD on 3 L of home oxygen, hypothyroidism, hypertension, cat bite, hypercholesterolemia, and depression that presents to the emergency room with right upper quadrant and epigastric abdominal pain. Patient states she is feeling ok. States she is having no abdominal pain today. However, she states she is having water bowel movements. Patient also feels "bloated" and feels her "belly is larger than normal." Patient is tolerating liquid diet. Patient denies any headaches or dizziness. No fevers or chills. No lightheadedness. No dysuria. Physical exam: General: Awake and alert lying in bed in no acute distress HEENT: Normocephalic, atraumatic. Extraocular muscles intact, pupils equal and reactive, no scleral icterus. Oropharynx is pink and moist. No pharyngeal erythema or exudate appreciated. Neck is supple. Cardiovascular: Regular rhythm. Normal S1 and S2. No murmurs, rubs, or gallops appreciated Pulmonary: Normal respiratory effort. Decreased breath sounds. No rhonchi, rales, or wheezing appreciated. Gastrointestinal: Soft. Positive distention. Nontender. Positive bowel sounds all 4 quadrants. No guarding. Negative Walsh's sign. Musculoskeletal: Moves all extremities. No calf tenderness. No edema appreciated. No CVA tenderness. Central nervous system: AAOx3, CN 2-12 grossly intact. Dermatologic: Skin warm and dry. Assessment and plan: Patient is an 83-year-old female past medical history significant for chronic respiratory failure secondary to pulmonary hypertension and COPD on 3 L of home oxygen, hypothyroidism, hypertension, cat bite, hypercholesterolemia, and depression that presents to the emergency room with right upper quadrant and epigastric abdominal pain. 1. Right upper quadrant abdominal pain. Epigastric pain. Possible cholecystitis. Pending HIDA scan results. Transaminitis downtrending. Tolerating liquid diet. Gallbladder ultrasound per radiologist showed gallstones, gallbladder wall thickening/pericholecystic fluid presumptive evidence for acute cholecystitis. Surgical team following, no surgical intervention currently recommended by surgical team. Continue Protonix. 2. Transaminits. Improving. HIDA scan results pending. GI consulted, follow up recommendations. 3. Burning with urination. Resolved. 4. Chronic respiratory failure secondary to COPD and pulmonary hypertension. She is on home oxygen. Continue O2 via nasal cannula. Continue home medications of Spiriva, Uptravi, and Adempas. Continue nebulizer treatments as needed. 5. Hypothyroidism. Continue Synthroid. 6. Hyperlipidemia. Patient on simvastatin at home. Not on formulary here. Con tinue Lipitor here. 7. Hypertension. Continue lasix with hold parameters. 8. GERD. Continue Protonix. 9. Depression and anxiety. Continue home Xanax and Lexapro. 10. GI/DVT prophylaxis. Protonix/Lovenox. 11. Patient states she has an advanced directive and she is DNR/DNI. Case was discussed in detail with the patient regarding her diagnosis and treatment plan. All questions answered.
[2018-08-31] MEDS: UPTRAVI PO SCH ×2 (06:24→17:52)
[2018-08-31] MEDS: Levothyroxine 100 MCG TAB PO SCH (06:25)
[2018-08-31 07:00] LABS: BASO # 0.01 K/mm3 (0.0-2.0); BASO % 0.3 % (0.0-3.0); EOS # 0.2 (0.0-0.7); EOS % 5.8 % (1.5-5.0); GRAN # 2.05 (1.4-6.5); GRAN % 51.8 % (50.0-68.0); HEMOGLOBIN 9.7 g/dL (12.0-16.0); LYMPH # 1.1 (1.2-3.4); MEAN CELL VOLUME 96.2 fl (80.0-105.0); MEAN CORPUSCULAR HEMOGLOBIN 28.4 pg (25.0-35.0); MEAN CORPUSCULAR HGB CONC 29.6 g/dl (31.0-37.0); MEAN PLATELET VOLUME 8.5 fl (7.0-11.0); MONO # 0.6 (0.1-0.6); MONO % 14.1 % (1.0-6.0); RBC 3.41 10^6/uL (3.5-6.1); RED CELL DISTRIBUTION WIDTH 14.6 % (11.5-14.5)
[2018-08-31 07:22] LABS: ALB/GLOB RATIO 1.2 (1.1-1.8); ALBUMIN 3.3 g/dL (3.0-4.8); CALCIUM 8.7 mg/dL (8.4-10.5)
--- NOTE | 2018-08-31 07:33 | CP.PCM.PN ---
<Emeka Manuel - Last Filed: 08/31/18 07:28> Subjective - Date & Time of Evaluation Date of Evaluation: 08/31/18 Time of Evaluation: 06:45 - Subjective Subjective: Surgery progress note Patient seen and examined at bedside. Abdominal pain has improved. Ambulating in the room and tolerating her diet and having regular BM. Denied fever, chills, N/V/D. Objective - Vital Signs/Intake and Output Vital Signs (last 24 hours): Temp Pulse Resp BP Pulse Ox 98.4 F 74 20 99/60 L 93 L 08/30/18 22:00 08/30/18 22:00 08/30/18 22:00 08/30/18 22:00 08/30/18 22:00 - Medications Medications: Current Medications Albuterol/Ipratropium (Duoneb 3 Mg/0.5 Mg (3 Ml) Ud) 3 ml IH [id number] PRN PRN Reason: Shortness of Breath Alprazolam (Xanax) 0.25 mg PO HS [facility]; Protocol Stop: 09/04/18 22:01 Last Admin: 08/30/18 22:12 Dose: 0.25 mg Atorvastatin Calcium (Lipitor) 20 mg PO DIN [facility] Last Admin: 08/30/18 17:47 Dose: 20 mg Enoxaparin Sodium (Lovenox) 30 mg SC DAILY [facility]; Protocol Last Admin: 08/30/18 10:54 Dose: 30 mg Escitalopram Oxalate (Lexapro) 20 mg PO DAILY [facility] Last Admin: 08/30/18 10:56 Dose: 20 mg Furosemide (Lasix) 40 mg PO DAILY [facility] Last Admin: 08/30/18 11:04 Dose: Not Given Home Med (Home Med) 1 unit PO TID [facility] Last Admin: 08/30/18 17:47 Dose: 1 unit Home Med (Home Med) 1 unit PO Q12H [facility] Last Admin: 08/31/18 06:24 Dose: 1 unit Sodium Chloride (Sodium Chloride 0.9%) 1,000 mls @ 75 mls/hr IV .[id number] [facility] Last Admin: 08/29/18 09:19 Dose: 75 mls/hr Levofloxacin/Dextrose (Levaquin 250mg) 250 mg in 50 mls @ 50 mls/hr IVPB DAILY [facility] Levothyroxine Sodium (Synthroid) 100 mcg PO 0600 [facility] Last Admin: 08/31/18 06:25 Dose: 100 mcg Pantoprazole Sodium (Protonix Inj) 40 mg IVP DAILY [facility] Last Admin: 08/30/18 10:54 Dose: 40 mg Tiotropium [place] (Spiriva) 18 mcg IH DAILY [facility] Last Admin: 08/30/18 10:54 Dose: 18 mcg - Labs Labs: 08/30/18 07:00 08/31/18 05:30 PT 12.1 SECONDS (9.4-12.5) 08/28/18 07:00 INR 1.05 08/28/18 07:00 APTT 28.2 Seconds (25.1-36.5) 08/28/18 07:00 - Additional Findings Additional findings: - Constitutional Appears: Well, No Acute Distress - Head Exam Head Exam: ATRAUMATIC, NORMAL INSPECTION, NORMOCEPHALIC - Eye Exam Eye Exam: EOMI, Normal appearance, PERRL Pupil Exam: NORMAL ACCOMODATION, PERRL - ENT Exam ENT Exam: Mucous Membranes Moist, Normal Exam - Respiratory Exam Respiratory Exam: Clear to Ausculation Bilateral, NORMAL BREATHING PATTERN - Cardiovascular Exam Cardiovascular Exam: REGULAR RHYTHM, +S1, +S2. absent: Murmur - GI/Abdominal Exam GI & Abdominal Exam: Soft, Normal Bowel Sounds. absent: Rigid, Tenderness, Hernia, Mass, Organomegaly, Rebound - Extremities Exam Extremities Exam: Full ROM, Normal Capillary Refill, Normal Inspection. absent: Joint Swelling, Pedal Edema - Neurological Exam Neurological Exam: Alert, Awake, Oriented x3 - Psychiatric Exam Psychiatric exam: Normal Affect, Normal Mood - Skin Skin Exam: Dry, Intact, Normal Color, Warm Assessment and Plan - Assessment and Plan (Free Text) Assessment: 83 y/o female with RUQ/epigastric abd pain x1 day. Patient afebrile, no leukocytosis, in NAD. Symptoms improving COPD HTN HLD Hypothyroidism Depression GERD Pulmonary HTN Plan: -LFT continue to trending down, patient asymptomatic -diet advanced to low fat -HIDA scan positive with cystic duct occlusion -U/S abd: gall bladder wall thickening with pericholecystic fluid. CBD 4.2 -conservative management, patient is a poor surgical candidate given comorbidities; pul HTN, dyspnea on exertion, poor exercise tolerance, oxygen dependent -continue PPI -continued management per primary team -further recs as per surgical attending Dr. Sal Manuel, DO <Andres Huang - Last Filed: 09/01/18 20:43> Objective - Vital Signs/Intake and Output Vital Signs (last 24 hours): Temp Pulse Resp BP Pulse Ox 98.2 F 66 18 98/60 L 92 L 09/01/18 06:00 09/01/18 06:00 09/01/18 06:00 09/01/18 10:05 09/01/18 06:00 - Labs Labs: 08/31/18 05:30 08/31/18 05:30 PT 12.1 SECONDS (9.4-12.5) 08/28/18 07:00 INR 1.05 08/28/18 07:00 APTT 28.2 Seconds (25.1-36.5) 08/28/18 07:00 Attending/Attestation - Attestation I have personally seen and examined this patient.: Yes I have fully participated in the care of the patient.: Yes I have reviewed all pertinent clinical information, including history, physical exam and plan: Yes Notes (Text): Pt was seen and examined at bedside Agree with above note and assessment Pt is improved clinically F.u as out No general surgical intervention required Plan d.w pt in detail Risk and benefit explained in detail.
--- NOTE | 2018-08-31 09:33 | CP.PCM.CON ---
History of Present Illness - History of Present Illness History of Present Illness: PGY-2 heme/onc consult note for Dr Ino Larry Past Patient History - Infectious Disease Hx of Infectious Diseases: None - Tetanus Immunizations Tetanus Immunization: Unknown - Past Social History Smoking Status: Former Smoker - CARDIAC Hx Cardiac Disorders: Yes Hx Hypercholesterolemia: Yes (HLD) - PULMONARY Hx Chronic Obstructive Pulmonary Disease (COPD): Yes - NEUROLOGICAL Hx Neurological Disorder: No - HEENT Hx HEENT Problems: Yes ([place] doesn't use her hearing aids) Hx Cataracts: Yes (b/l sx) - ENDOCRINE/METABOLIC Hx Hypothyroidism: Yes - HEMATOLOGICAL/ONCOLOGICAL Hx Blood Transfusions: No - INTEGUMENTARY Hx Dermatological Problems: Yes Other/Comment: multiple skin discolorations b/l arms, multiple small brown sports to skin on back, b/l bunyons, tetanus shot 01/17/17 from cat bite - MUSCULOSKELETAL/RHEUMATOLOGICAL Hx Musculoskeletal Disorders: No Hx Falls: No - GASTROINTESTINAL Hx Gastrointestinal Disorders: Yes Other/Comment: heartburn from "pulmonary htn meds adempas and uptravi." - GENITOURINARY/GYNECOLOGICAL Hx Genitourinary Disorders: Yes Hx Incontinence: Yes (at times due to lasix & frequency) Other/Comment: slight burning on urination "now & then" - PSYCHIATRIC Hx Psychophysiologic Disorder: Yes Hx Anxiety: Yes Hx Depression: Yes Hx Substance Use: No - SURGICAL HISTORY Hx Surgeries: Yes Other/Comment: D&C, colon polyps - ANESTHESIA Hx Anesthesia: Yes Hx Anesthesia Reactions: No Hx Malignant Hyperthermia: No Meds Allergies/Adverse Reactions: Allergies Allergy/AdvReac Type Severity Reaction Status Date / Time amoxicillin Allergy URTICARIA Verified 08/28/18 05:57 Penicillins Allergy URTICARIA Verified 08/28/18 05:57 - Medications Medications: Current Medications Albuterol/Ipratropium (Duoneb 3 Mg/0.5 Mg (3 Ml) Ud) 3 ml IH [id number] PRN PRN Reason: Shortness of Breath Alprazolam (Xanax) 0.25 mg PO HS [facility]; Protocol Stop: 09/04/18 22:01 Last Admin: 08/30/18 22:12 Dose: 0.25 mg Atorvastatin Calcium (Lipitor) 20 mg PO DIN [facility] Last Admin: 08/30/18 17:47 Dose: 20 mg Enoxaparin Sodium (Lovenox) 30 mg SC DAILY [facility]; Protocol Last Admin: 08/30/18 10:54 Dose: 30 mg Escitalopram Oxalate (Lexapro) 20 mg PO DAILY [facility] Last Admin: 08/30/18 10:56 Dose: 20 mg Furosemide (Lasix) 40 mg PO DAILY [facility] Last Admin: 08/30/18 11:04 Dose: Not Given Home Med (Home Med) 1 unit PO TID [facility] Last Admin: 08/30/18 17:47 Dose: 1 unit Home Med (Home Med) 1 unit PO Q12H [facility] Last Admin: 08/31/18 06:24 Dose: 1 unit Levofloxacin/Dextrose (Levaquin 250mg) 250 mg in 50 mls @ 50 mls/hr IVPB DAILY [facility] Metronidazole (Flagyl) 500 mg in 100 mls @ 100 mls/hr IVPB Q8 [facility]; Protocol Levothyroxine Sodium (Synthroid) 100 mcg PO 0600 [facility] Last Admin: 08/31/18 06:25 Dose: 100 mcg Pantoprazole Sodium (Protonix Inj) 40 mg IVP DAILY [facility] Last Admin: 08/30/18 10:54 Dose: 40 mg Tiotropium [place] (Spiriva) 18 mcg IH DAILY [facility] Last Admin: 08/30/18 10:54 Dose: 18 mcg Results - Vital Signs Recent Vital Signs: Last Vital Signs Temp 100.2 F H 08/31/18 06:00 Pulse 75 08/31/18 06:00 Resp 20 08/31/18 06:00 BP 111/70 08/31/18 06:00 Pulse Ox 94 L 08/31/18 06:00 - Labs Result Diagrams: 08/31/18 05:30 08/31/18 05:30 Labs: Laboratory Results - last 24 hr 08/31/18 08/31/18 05:30 05:30 WBC 4.0 L RBC 3.41 L Hgb 9.7 L Hct 32.8 L MCV 96.2 MCH 28.4 MCHC 29.6 L RDW 14.6 H Plt Count 300 MPV 8.5 Gran % 51.8 Lymph % (Auto) 28.0 [place] % (Auto) 14.1 H Eos % (Auto) 5.8 H Baso % (Auto) 0.3 Gran # 2.05 Lymph # (Auto) 1.1 L [place] # (Auto) 0.6 Eos # (Auto) 0.2 Baso # (Auto) 0.01 Sodium 140 Potassium 4.3 Chloride 106 Carbon Dioxide 31 Anion Gap 8 L BUN 6 L Creatinine 1.2 Est GFR ( Amer) 52 Est GFR (Non-Af Amer) 43 Random Glucose 92 Calcium 8.7 Phosphorus 3.5 Magnesium 2.0 Total Bilirubin 0.4 AST 67 H D ALT 86 H Alkaline Phosphatase 108 Total Protein 6.1 Albumin 3.3 Globulin 2.8 Albumin/Globulin Ratio 1.2 Assessment & Plan - Assessment and Plan (Free Text) Plan: 83 y/o F with PMHx of COPD on 3L home O2, pulm HTN, HTN, HLD, hypothyroidism, depression, anxiety presents to ED with complaints of abdominal pain:
[2018-08-31] MEDS ORDERED: levoFLOXacin 500 mg in D5W 500 MG/100 ML BAG IVPB SCH (10:00)
[2018-08-31] MEDS ORDERED: levoFLOXacin 250 mg in D5W 250 MG/50 ML BAG IVPB SCH (10:00)
[2018-08-31] MEDS: metroNIDAZOLE IV 500 mg/100 ml 500 MG/100 ML BAG IVPB SCH ×3 (10:17→21:39)
[2018-08-31] MEDS: Enoxaparin 30 mg Syringe SC SCH (10:18)
[2018-08-31] MEDS: Tiotropium 18 mcg Cap For Inhalation IH SCH (10:20)
[2018-08-31] MEDS ORDERED: Albuterol-Ipratrop 3 mg / 0.5 (3 ml) UD IH PRN (10:20)
--- NOTE | 2018-08-31 10:29 | PN ---
DATE: 08/31/2018 SUBJECTIVE: The patient is lying in bed. She feels better. She denies any further abdominal pain. She denies any nausea, vomiting. OBJECTIVE: VITAL SIGNS: Reveal temperature of 100.2, blood pressure 111/70, heart rate of 75. HEENT: Reveal sclerae to be white. Conjunctivae pink. NECK: Supple. CHEST: Reveal lungs to be clear. HEART: Reveals a regular rate and rhythm. ABDOMEN: Soft, nontender. No mass. EXTREMITIES: Show no edema. LABORATORY DATA: Reveal white blood cell count 4.0, hemoglobin 9.7, platelet count 300,000. Chemistries reveal AST down to 67, ALT 86, total bilirubin and alkaline phosphatase normal. IMPRESSION: An 83-year-old female with acute cholecystitis with multiple comorbidities including advance chronic obstructive pulmonary disease requiring home oxygen and pulmonary hypertension. Clinically, the patient appears improved. However, I am concerned about her rise in temperature this morning to 100.2. Clinically, she does not appear toxic. Her LFTs are coming down. Surgery has been deferred due to the patient's high risk. RECOMMENDATION: Continue close observation of the patient if she becomes septic with us. Recurrence of symptoms, she may need to have a percutaneous cholecystotomy tube placement. However, she appears clinically improved at this time and will continue close observation and continue IV antibiotics. Dirk Jain MD
[2018-08-31] MEDS: ADEMPAS 2.5 MG PO SCH ×3 (11:01→17:52)
[2018-08-31] MEDS ORDERED: MethylPREDNISolone 40 mg Vial IVP ONE (11:07)
--- NOTE | 2018-08-31 12:17 | CP.PCM.APN ---
Subjective - Date & Time of Evaluation Date of Evaluation: 08/31/18 Time of Evaluation: 10:30 - Subjective Subjective: Pt seen and examined at bedside. She is c/o feeling bloated after eating breakfast. Denies abdominal pain, nausea or vomiting. Stated that she had moved her bowel early this morning without difficulty. She is also c/o shortness of breath at rest. Denies chest pain. Objective - Vital Signs/Intake and Output Vital Signs (last 24 hours): Temp Pulse Resp BP Pulse Ox 100.2 F H 75 20 103/61 94 L 08/31/18 06:00 08/31/18 06:00 08/31/18 06:00 08/31/18 10:19 08/31/18 06:00 - Medications Medications: Current Medications Albuterol/Ipratropium (Duoneb 3 Mg/0.5 Mg (3 Ml) Ud) 3 ml IH [id number] [facility] Albuterol/Ipratropium (Duoneb 3 Mg/0.5 Mg (3 Ml) Ud) 3 ml IH Q2H PRN PRN Reason: Shortness of Breath Alprazolam (Xanax) 0.25 mg PO HS [facility]; Protocol Stop: 09/04/18 22:01 Last Admin: 08/30/18 22:12 Dose: 0.25 mg Atorvastatin Calcium (Lipitor) 20 mg PO DIN [facility] Last Admin: 08/30/18 17:47 Dose: 20 mg Enoxaparin Sodium (Lovenox) 30 mg SC DAILY [facility]; Protocol Last Admin: 08/31/18 10:18 Dose: 30 mg Escitalopram Oxalate (Lexapro) 20 mg PO DAILY [facility] Last Admin: 08/31/18 10:20 Dose: 20 mg Furosemide (Lasix) 40 mg PO DAILY [facility] Last Admin: 08/31/18 10:19 Dose: 40 mg Home Med (Home Med) 1 unit PO TID [facility] Last Admin: 08/31/18 11:01 Dose: 1 unit Home Med (Home Med) 1 unit PO Q12H [facility] Last Admin: 08/31/18 06:24 Dose: 1 unit Metronidazole (Flagyl) 500 mg in 100 mls @ 100 mls/hr IVPB Q8 [facility]; Protocol Last Admin: 08/31/18 10:17 Dose: 100 mls/hr Levofloxacin/Dextrose (Levaquin 250mg) 250 mg in 50 mls @ 50 mls/hr IVPB DAILY [facility] Levothyroxine Sodium (Synthroid) 100 mcg PO 0600 [facility] Last Admin: 08/31/18 06:25 Dose: 100 mcg Pantoprazole Sodium (Protonix Inj) 40 mg IVP DAILY [facility] Last Admin: 08/31/18 10:19 Dose: 40 mg Tiotropium [place] (Spiriva) 18 mcg IH DAILY [facility] Last Admin: 08/31/18 10:20 Dose: 18 mcg - Labs Labs: 08/31/18 05:30 08/31/18 05:30 PT 12.1 SECONDS (9.4-12.5) 08/28/18 07:00 INR 1.05 08/28/18 07:00 APTT 28.2 Seconds (25.1-36.5) 08/28/18 07:00 - Constitutional Appears: Well, No Acute Distress - Head Exam Head Exam: ATRAUMATIC - Eye Exam Eye Exam: Normal appearance - Neck Exam Neck Exam: Full ROM - Respiratory Exam Respiratory Exam: Wheezes - Cardiovascular Exam Cardiovascular Exam: REGULAR RHYTHM, +S1, +S2 - GI/Abdominal Exam GI & Abdominal Exam: Soft, Normal Bowel Sounds - Rectal Exam Rectal Exam: Deferred - Neurological Exam Neurological Exam: Alert, Awake, Oriented x3 Assessment and Plan - Assessment and Plan (Free Text) Plan: Pt is an 83 y.o. female who is admitted for acute cholecystitis. She currently does not complain of abdominal pain, nausea or vomiting. Her surgery has been deferred because she is at high risk. Per GI, pt may need percutaneous cholecystostomy tube if symptoms re-occur but for now will need to closely observe pt. She is currently on Flagyl and Levaquin. Pt was given a dose of Solumedrol and will repeat CXR for shortness of breath. Will continue on nebulizer treatments. TCU eval pending.
[2018-08-31] MEDS: Albuterol-Ipratrop 3 mg / 0.5 (3 ml) UD IH SCH ×2 (14:30→19:32)
--- NOTE | 2018-08-31 14:38 | RAD ---
Date of service: 08/31/2018 HISTORY: short of breath, f/u COMPARISON: 08/28/2018 FINDINGS: LUNGS: No active pulmonary disease. PLEURA: No significant pleural effusion identified, no pneumothorax apparent. CARDIOVASCULAR: Minimal aortic calcification Normal cardiac size. No pulmonary vascular congestion. OSSEOUS STRUCTURES: No significant abnormalities. VISUALIZED UPPER ABDOMEN: Normal. OTHER FINDINGS: None. IMPRESSION: No active disease.
[2018-08-31 14:48] VITALS: TEMP 98.2
--- NOTE | 2018-08-31 17:30 | CP.PCM.PN ---
<Neto Palacios - Last Filed: 08/31/18 17:27> Subjective - Date & Time of Evaluation Date of Evaluation: 08/31/18 Time of Evaluation: 13:00 - Subjective Subjective: INTERNAL MEDICINE PROGRESS NOTE FOR DR. BAUDILIO Palacios PGY1 Pt seen and examined at bedside this am. Pt reports bloating after her meal, without abdominal pain, nausea, vomiting constipation or diarrhea. She had a BM this am. She otherwise denies 12 point ROS. Objective - Vital Signs/Intake and Output Vital Signs (last 24 hours): Temp Pulse Resp BP Pulse Ox 98.2 F 72 20 86/51 L 96 08/31/18 14:00 08/31/18 14:00 08/31/18 14:00 08/31/18 14:00 08/31/18 14:00 - Medications Medications: Current Medications Albuterol/Ipratropium (Duoneb 3 Mg/0.5 Mg (3 Ml) Ud) 3 ml IH [id number] [facility] Last Admin: 08/31/18 14:30 Dose: 3 ml Albuterol/Ipratropium (Duoneb 3 Mg/0.5 Mg (3 Ml) Ud) 3 ml IH Q2H PRN PRN Reason: Shortness of Breath Alprazolam (Xanax) 0.25 mg PO HS [facility]; Protocol Stop: 09/04/18 22:01 Last Admin: 08/30/18 22:12 Dose: 0.25 mg Atorvastatin Calcium (Lipitor) 20 mg PO DIN [facility] Last Admin: 08/30/18 17:47 Dose: 20 mg Enoxaparin Sodium (Lovenox) 30 mg SC DAILY [facility]; Protocol Last Admin: 08/31/18 10:18 Dose: 30 mg Escitalopram Oxalate (Lexapro) 20 mg PO DAILY [facility] Last Admin: 08/31/18 10:20 Dose: 20 mg Furosemide (Lasix) 40 mg PO DAILY [facility] Last Admin: 08/31/18 10:19 Dose: 40 mg Home Med (Home Med) 1 unit PO TID [facility] Last Admin: 08/31/18 14:53 Dose: 1 unit Home Med (Home Med) 1 unit PO Q12H [facility] Last Admin: 08/31/18 06:24 Dose: 1 unit Metronidazole (Flagyl) 500 mg in 100 mls @ 100 mls/hr IVPB Q8 [facility]; Protocol Last Admin: 08/31/18 14:48 Dose: 100 mls/hr Levofloxacin/Dextrose (Levaquin 250mg) 250 mg in 50 mls @ 50 mls/hr IVPB DAILY [facility] Levothyroxine Sodium (Synthroid) 100 mcg PO 0600 [facility] Last Admin: 08/31/18 06:25 Dose: 100 mcg Pantoprazole Sodium (Protonix Inj) 40 mg IVP DAILY [facility] Last Admin: 08/31/18 10:19 Dose: 40 mg Tiotropium [place] (Spiriva) 18 mcg IH DAILY [facility] Last Admin: 08/31/18 10:20 Dose: 18 mcg - Labs Labs: 08/31/18 05:30 08/31/18 05:30 PT 12.1 SECONDS (9.4-12.5) 08/28/18 07:00 INR 1.05 08/28/18 07:00 APTT 28.2 Seconds (25.1-36.5) 08/28/18 07:00 - Constitutional Appears: Well, Non-toxic, No Acute Distress - Head Exam Head Exam: NORMAL INSPECTION, NORMOCEPHALIC - Eye Exam Eye Exam: EOMI, Normal appearance - ENT Exam ENT Exam: Mucous Membranes Moist, Normal Exam - Neck Exam Neck Exam: Normal Inspection. absent: Meningismus - Respiratory Exam Respiratory Exam: Clear to Ausculation Bilateral, NORMAL BREATHING PATTERN - Cardiovascular Exam Cardiovascular Exam: REGULAR RHYTHM - GI/Abdominal Exam GI & Abdominal Exam: Soft. absent: Tenderness - Extremities Exam Extremities Exam: Normal Inspection - Back Exam Back Exam: NORMAL INSPECTION - Neurological Exam Neurological Exam: Alert, Awake, Oriented x3 - Psychiatric Exam Psychiatric exam: Normal Affect, Normal Mood - Skin Skin Exam: Dry, Intact, Warm Assessment and Plan - Assessment and Plan (Free Text) Assessment: 83 y/o F with PMHx of COPD 3L home O2, chronic respiratory failure 2/2 pulm HTN, HTN, HLD, hypothyroidism, depression, anxiety admitted for RUQ abdominal pain 2/2 acute cholecystitis Plan: Acute cholecystitis Abd u/s reveals gallstones with GB wall thickening/pericholecystic fluid presumptive evidence for acute cholecystitis HIDA: (+) scan, cystic duct is occluded, presumptive evidence for acute cholecystitis LFTs downtrending. Likely 2/2 alcoholic liver disease Surgery: No acute surgical intervention at this time. Pt is high risk for surgical procedures Lipase wnl Continue empiric levofloxacin, & flagyl, IVF, CLD GI following. will observe closely. Pt may be a candidate for percutaneous cholecystostomy tube placement Pulm HTN continue home Uptravi, Adempas, spiriva. Consider holding d/t hypotension continue home lasix COPD Duonebs treatment Repeat chest xray today d/t reported sob. no active disease continue home Spiriva HLD Continue atorvastatin Depression Continue escitalopram, xanax Hypothyroidism continue home levothyroxine DVT/GI: LVX/PTX Case seen, examined and discussed with attending physician, Dr Baudilio Palacios PGY1 <Alicja Astudillo R - Last Filed: 09/02/18 11:14> Objective - Vital Signs/Intake and Output Vital Signs (last 24 hours): Temp Pulse Resp BP Pulse Ox 98.2 F 66 18 98/60 L 92 L 09/01/18 06:00 09/01/18 06:00 09/01/18 06:00 09/01/18 10:05 09/01/18 06:00 - Labs Labs: 08/31/18 05:30 08/31/18 05:30 PT 12.1 SECONDS (9.4-12.5) 08/28/18 07:00 INR 1.05 08/28/18 07:00 APTT 28.2 Seconds (25.1-36.5) 08/28/18 07:00 Attending/Attestation - Attestation I have personally seen and examined this patient.: Yes I have fully participated in the care of the patient.: Yes I have reviewed all pertinent clinical information, including history, physical exam and plan: Yes Notes (Text): Patient seen and examined by me with resident at 12PM on 08/31/18. Case including HPI, physical exam, and assessment and plan discussed with resident. Agree with above with following additions/corrections. Patient is an 83-year-old female past medical history significant for chronic respiratory failure secondary to pulmonary hypertension and COPD on 3 L of home oxygen, hypothyroidism, hypertension, cat bite, hypercholesterolemia, and depression that presents to the emergency room with right upper quadrant and epigastric abdominal pain. Patient states she is feeling a little better today. Patient states she felt a little short of breath earlier. She is denying abdominal pain. Bowel movements a re starting to become "thicker." Patient is tolerating diet. Abdominal bloating is resolving. Patient denies any headaches or dizziness. No fevers or chills. No lightheadedness. No dysuria. No chest pain or palpitations. Physical exam: General: Awake and alert lying in bed in no acute distress HEENT: Normocephalic, atraumatic. Extraocular muscles intact, pupils equal and reactive, no scleral icterus. Oropharynx is pink and moist. No pharyngeal erythema or exudate appreciated. Neck is supple. Cardiovascular: Regular rhythm. Normal S1 and S2. No murmurs, rubs, or gallops appreciated Pulmonary: Normal respiratory effort. Decreased breath sounds. No rhonchi, rales, or wheezing appreciated. Gastrointestinal: Soft. Mild distention. Nontender. Positive bowel sounds all 4 quadrants. No guarding. Negative Walsh's sign. Musculoskeletal: Moves all extremities. No calf tenderness. No edema isauro reciated. No CVA tenderness. Central nervous system: AAOx3, CN 2-12 grossly intact. Dermatologic: Skin warm and dry. Assessment and plan: Patient is an 83-year-old female past medical history signi ficant for chronic respiratory failure secondary to pulmonary hypertension and COPD on 3 L of home oxygen, hypothyroidism, hypertension, cat bite, hypercholesterolemia, and depression that presents to the emergency room with right upper quadrant and epigastric abdominal pain. 1. Right upper quadrant abdominal pain. Epigastric pain. Cholecystitis. Patient poor surgical candidate. Pain improving. Patient tolerating diet. LFTS downtrending. Surgical team following, no surgical intervention currently recommended by surgical team. Continue Levaquin and Flagyl. HIDA scan per radiologist showed positive hepatobiliary scan, cystic duct is occluded, presumptive evidence of acute cholecystitis. Gallbladder ultrasound per radiologist showed gallstones, gallbladder wall thickening/pericholecystic fluid presumptive evidence for acute cholecystitis. Continue Protonix. 2. Transaminits. Downtrending. GI following, recommendations appreciated. 3. Burning with urination. Resolved. 4. Chronic respiratory failure secondary to COPD and pulmonary hypertension. She is on home oxygen. Continue O2 via nasal cannula. Continue home medications of Spiriva, Uptravi, and Adempas. Continue nebulizer treatments as needed. Follow up chest xray. 5. Hypothyroidism. Continue Synthroid. 6. Hyperlipidemia. Patient on simvastatin at home. Not on formulary here. Continue Lipitor here. 7. Hypertension. Continue lasix with hold parameters. 8. GERD. Continue Protonix. 9. Depression and anxiety. Continue home Xanax and Lexapro. 10. GI/DVT prophylaxis. Protonix/Lovenox. 11. Patient states she has an advanced directive and she is DNR/DNI. Case was discussed in detail with the patient regarding her diagnosis and treatment plan. All questions answered.
[2018-08-31] MEDS ORDERED: MethylPREDNISolone 40 mg Vial ONE (19:37)
[2018-09-01] MEDS: Albuterol-Ipratrop 3 mg / 0.5 (3 ml) UD IH SCH ×3 (02:44→13:19)
[2018-09-01] MEDS: metroNIDAZOLE IV 500 mg/100 ml 500 MG/100 ML BAG IVPB SCH ×2 (05:55→14:51)
[2018-09-01] MEDS: Levothyroxine 100 MCG TAB PO SCH (05:55)
--- NOTE | 2018-09-01 07:52 | CP.PCM.PN ---
<Guille Arango - Last Filed: 09/01/18 07:49> Subjective - Date & Time of Evaluation Date of Evaluation: 09/01/18 Time of Evaluation: 07:49 - Subjective Subjective: Surgery PT seen. No acute events. Pain controlled. Tolerating diet. Denies fever, nausea, vomiting, diarrhea. Seen by Dr. Huang yesterday. Instructed to follow up. Objective - Vital Signs/Intake and Output Vital Signs (last 24 hours): Temp Pulse Resp BP Pulse Ox 98.2 F 72 20 86/51 L 96 08/31/18 14:00 08/31/18 14:00 08/31/18 14:00 08/31/18 14:00 08/31/18 14:00 Intake and Output: 09/01/18 09/01/18 06:59 18:59 Intake Total 420 Balance 420 - Medications Medications: Current Medications Albuterol/Ipratropium (Duoneb 3 Mg/0.5 Mg (3 Ml) Ud) 3 ml IH [id number] [facility] Last Admin: 09/01/18 07:14 Dose: 3 ml Albuterol/Ipratropium (Duoneb 3 Mg/0.5 Mg (3 Ml) Ud) 3 ml IH Q2H PRN PRN Reason: Shortness of Breath Alprazolam (Xanax) 0.25 mg PO HS [facility]; Protocol Stop: 09/04/18 22:01 Last Admin: 08/31/18 21:40 Dose: 0.25 mg Atorvastatin Calcium (Lipitor) 20 mg PO DIN [facility] Last Admin: 08/31/18 17:52 Dose: 20 mg Enoxaparin Sodium (Lovenox) 30 mg SC DAILY [facility]; Protocol Last Admin: 08/31/18 10:18 Dose: 30 mg Escitalopram Oxalate (Lexapro) 20 mg PO DAILY [facility] Last Admin: 08/31/18 10:20 Dose: 20 mg Furosemide (Lasix) 40 mg PO DAILY [facility] Last Admin: 08/31/18 10:19 Dose: 40 mg Home Med (Home Med) 1 unit PO TID [facility] Last Admin: 08/31/18 17:52 Dose: 1 unit Home Med (Home Med) 1 unit PO Q12H [facility] Last Admin: 08/31/18 17:52 Dose: 1 unit Metronidazole (Flagyl) 500 mg in 100 mls @ 100 mls/hr IVPB Q8 [facility]; Protocol Last Admin: 09/01/18 05:55 Dose: 100 mls/hr Levofloxacin/Dextrose (Levaquin 250mg) 250 mg in 50 mls @ 50 mls/hr IVPB DAILY [facility] Levothyroxine Sodium (Synthroid) 100 mcg PO 0600 [facility] Last Admin: 09/01/18 05:55 Dose: 100 mcg Pantoprazole Sodium (Protonix Inj) 40 mg IVP DAILY [facility] Last Admin: 08/31/18 10:19 Dose: 40 mg Tiotropium [place] (Spiriva) 18 mcg IH DAILY [facility] Last Admin: 08/31/18 10:20 Dose: 18 mcg - Labs Labs: 08/31/18 05:30 08/31/18 05:30 PT 12.1 SECONDS (9.4-12.5) 08/28/18 07:00 INR 1.05 08/28/18 07:00 APTT 28.2 Seconds (25.1-36.5) 08/28/18 07:00 - Constitutional Appears: No Acute Distress - Head Exam Head Exam: ATRAUMATIC, NORMAL INSPECTION, NORMOCEPHALIC - Eye Exam Eye Exam: EOMI, Normal appearance, PERRL Pupil Exam: NORMAL ACCOMODATION, PERRL - ENT Exam ENT Exam: Mucous Membranes Moist, Normal Exam - Respiratory Exam Respiratory Exam: NORMAL BREATHING PATTERN - Cardiovascular Exam Cardiovascular Exam: REGULAR RHYTHM - GI/Abdominal Exam GI & Abdominal Exam: Soft, Normal Bowel Sounds. absent: Distended, Tenderness - Extremities Exam Extremities Exam: Full ROM - Back Exam Back Exam: NORMAL INSPECTION - Neurological Exam Neurological Exam: Alert, Awake, CN II-XII Intact, Normal Gait, Oriented x3 - Psychiatric Exam Psychiatric exam: Normal Affect, Normal Mood - Skin Skin Exam: Dry, Intact, Normal Color, Warm Assessment and Plan - Assessment and Plan (Free Text) Assessment: 83 y/o female with RUQ/epigastric abd pain. Patient afebrile, no leukocytosis, in NAD. Symptoms improving COPD HTN HLD Hypothyroidism Depression GERD Pulmonary HTN Plan: -LFT continue to trending down, patient asymptomatic -diet :Low fat -HIDA scan positive with cystic duct occlusion -U/S abd: gall bladder wall thickening with pericholecystic fluid. CBD 4.2 -conservative management, patient is a poor surgical candidate given comorbidities; pul HTN, dyspnea on exertion, poor exercise tolerance, oxygen dependent -recommend cholecystostomy tube if sxs worsen. -Follow up at Dr. Huang's office after DC -continue PPI -continued management per primary team -further recs as per surgical attending Dr. Huang <Andres Huang - Last Filed: 09/01/18 20:45> Objective - Vital Signs/Intake and Output Vital Signs (last 24 hours): Temp Pulse Resp BP Pulse Ox 98.2 F 66 18 98/60 L 92 L 09/01/18 06:00 09/01/18 06:00 09/01/18 06:00 09/01/18 10:05 09/01/18 06:00 - Labs Labs: 08/31/18 05:30 08/31/18 05:30 PT 12.1 SECONDS (9.4-12.5) 08/28/18 07:00 INR 1.05 08/28/18 07:00 APTT 28.2 Seconds (25.1-36.5) 08/28/18 07:00 Attending/Attestation - Attestation I have personally seen and examined this patient.: Yes I have fully participated in the care of the patient.: Yes I have reviewed all pertinent clinical information, including history, physical exam and plan: Yes Notes (Text): Pt was seen and examined at bedside Agree with above note and assessment Pt is still refusing surgery f.u as out pt Po antibiotics Plan d.w pt in detail
[2018-09-01 07:54] VITALS: PULSE 66; RESP 18; O2SAT 92
[2018-09-01] MEDS ORDERED: levoFLOXacin 250 mg in D5W 250 MG/50 ML BAG IVPB SCH (10:00)
[2018-09-01] MEDS: Enoxaparin 30 mg Syringe SC SCH (10:05)
[2018-09-01] MEDS: Tiotropium 18 mcg Cap For Inhalation IH SCH (10:05)
[2018-09-01] MEDS: UPTRAVI PO SCH (10:06)
[2018-09-01] MEDS: ADEMPAS 2.5 MG PO SCH ×2 (10:06→14:51)
[2018-09-01 10:17] VITALS: BP 98/60
[2018-09-01 10:48] LABS: PH,URINE 5.5 (4.7-8.0); URINE BILIRUBIN NEGATIVE (NEGATIVE); URINE BLOOD NEGATIVE (NEGATIVE); URINE GLUCOSE (UA) NEGATIVE (NEGATIVE); URINE LEUKOCYTE ESTERASE NEGATIVE Leu/uL (NEGATIVE); URINE PROTEIN NEGATIVE mg/dL (<30 mg/dL); URINE UROBILINOGEN 0.2 E.U./dL (<1 E.U./dL)
[2018-09-01 10:56] LABS: URINE APPEARANCE CLEAR (CLEAR); URINE COLOR YELLOW (YELLOW)
--- NOTE | 2018-09-01 11:58 | PN ---
DATE: 09/01/2018 SUBJECTIVE The patient is lying in bed. She denies any further abdominal pain. She is tolerating solid food. She denies any nausea, vomiting. OBJECTIVE: VITAL SIGNS: Reveal temperature of 98.2, blood pressure 98/60, heart rate of 66. HEENT: Reveal sclerae to be white. Conjunctivae pink. NECK: Supple. CHEST: Lungs are clear. HEART: Reveals regular rate and rhythm. ABDOMEN: Soft, nontender. EXTREMITIES: Show no edema. LABORATORY DATA: Reveal white blood cell count 4.0, hemoglobin 9.7. Chemistries reveal no new data. IMPRESSION: A 83-year-old female with advanced chronic obstructive pulmonary disease requiring home oxygen, pulmonary hypertension with acute cholecystitis. Surgery has been deferred due to the patient's high risk surgery. She is a DNR. She has improved with conservative treatment and antibiotics. RECOMMENDATIONS: Are to discharge the patient home on Cipro 500 twice daily and Flagyl 500 3 times daily for another 10 days. She has been instructed to continue a low-fat diet. She has also been instructed to return to the hospital if she developed recurrent abdominal pain. iDrk Jain MD
--- NOTE | 2018-09-01 19:00 | CP.PCM.DIS ---
Provider - Provider Date of Admission: 08/29/18 11:09 Attending physician: Alicja Astudillo DO Consults: 08/28/18 09:21 General Surgery Consult Stat Comment: Consulting Provider: Andres Huang Consulting Physician: Andres Huang Reason for Consult: gallstones 08/28/18 16:43 Social Work Referral Routine Comment: d/c plan Physician Instructions: Reason For Exam: eval 08/28/18 17:09 Case Management Referral Routine Comment: Physician Instructions: Reason For Exam: Reason for Referral: Discharge Planning Inpatient STORY ANALYST Core Measures Referral Routine Comment: biliary colic Physician Instructions: Reason For Exam: eval Transition In Care/Readmission Reduction Routine Comment: biliary colic Physician Instructions: Reason For Exam: eval 08/29/18 16:25 Gastroenterology Consult Routine Comment: Consulting Provider: Dirk Jain Consulting Physician: Dirk Jain Reason for Consult: Gallstones in GB, worsening LFTs 08/30/18 14:53 TCU [Evaluation for TRCU] Routine Comment: Physician Instructions: Reason For Exam: PT recommend rehab Time Spent in preparation of Discharge (in minutes): 45 Diagnosis - Discharge Diagnosis (1) Acute cholecystitis Status: Acute (2) Pulmonary hypertension Status: Chronic (3) COPD (chronic obstructive pulmonary disease) Status: Chronic Hospital Course - Lab Results Lab Results: Most Recent Lab Values WBC 4.0 10^3/uL (4.5-11.0) L 08/31/18 05:30 RBC 3.41 10^6/uL (3.5-6.1) L 08/31/18 05:30 Hgb 9.7 g/dL (12.0-16.0) L 08/31/18 05:30 Hct 32.8 % (36.0-48.0) L 08/31/18 05:30 MCV 96.2 fl (80.0-105.0) 08/31/18 05:30 MCH 28.4 pg (25.0-35.0) 08/31/18 05:30 MCHC 29.6 g/dl (31.0-37.0) L 08/31/18 05:30 RDW 14.6 % (11.5-14.5) H 08/31/18 05:30 Plt Count 300 10^3/uL (120.0-450.0) 08/31/18 05:30 MPV 8.5 fl (7.0-11.0) 08/31/18 05:30 Gran % 51.8 % (50.0-68.0) 08/31/18 05:30 Lymph % (Auto) 28.0 % (22.0-35.0) 08/31/18 05:30 [place] % (Auto) 14.1 % (1.0-6.0) H 08/31/18 05:30 Eos % (Auto) 5.8 % (1.5-5.0) H 08/31/18 05:30 Baso % (Auto) 0.3 % (0.0-3.0) 08/31/18 05:30 Gran # 2.05 (1.4-6.5) 08/31/18 05:30 Lymph # (Auto) 1.1 (1.2-3.4) L 08/31/18 05:30 [place] # (Auto) 0.6 (0.1-0.6) 08/31/18 05:30 Eos # (Auto) 0.2 (0.0-0.7) 08/31/18 05:30 Baso # (Auto) 0.01 K/mm3 (0.0-2.0) 08/31/18 05:30 PT 12.1 SECONDS (9.4-12.5) 08/28/18 07:00 INR 1.05 08/28/18 07:00 APTT 28.2 Seconds (25.1-36.5) 08/28/18 07:00 D-Dimer, Quantitative 210 ng/mlDDU (0-243) 08/28/18 07:00 Sodium 140 mmol/L (132-148) 08/31/18 05:30 Potassium 4.3 mmol/L (3.6-5.0) 08/31/18 05:30 Chloride 106 mmol/L (98-107) 08/31/18 05:30 Carbon Dioxide 31 mmol/L (21-33) 08/31/18 05:30 Anion Gap 8 (10-20) L 08/31/18 05:30 BUN 6 mg/dL (7-21) L 08/31/18 05:30 Creatinine 1.2 mg/dl (0.7-1.2) 08/31/18 05:30 Est GFR ( Amer) 52 08/31/18 05:30 Est GFR (Non-Af Amer) 43 08/31/18 05:30 Random Glucose 92 mg/dL (70-110) 08/31/18 05:30 Calcium 8.7 mg/dL (8.4-10.5) 08/31/18 05:30 Phosphorus 3.5 mg/dL (2.5-4.5) 08/31/18 05:30 Magnesium 2.0 mg/dL (1.7-2.2) 08/31/18 05:30 Total Bilirubin 0.4 mg/dL (0.2-1.3) 08/31/18 05:30 AST 67 U/L (14-36) H D 08/31/18 05:30 ALT 86 U/L (7-56) H 08/31/18 05:30 Alkaline Phosphatase 108 U/L (38-126) 08/31/18 05:30 Lactate Dehydrogenase 463 U/L (333-699) 08/28/18 07:00 Total Creatine Kinase 160 U/L (35-230) 08/28/18 07:00 Troponin I < 0.01 ng/mL 08/28/18 07:00 NT-Pro-B Natriuret Pep 490 pg/mL (0-450) H 08/28/18 07:00 Total Protein 6.1 g/dL (5.8-8.3) 08/31/18 05:30 Albumin 3.3 g/dL (3.0-4.8) 08/31/18 05:30 Globulin 2.8 gm/dL 08/31/18 05:30 Albumin/Globulin Ratio 1.2 (1.1-1.8) 08/31/18 05:30 Lipase 116 U/L (23-300) 08/28/18 07:00 Urine Color Yellow (YELLOW) 09/01/18 10:20 Urine Appearance Clear (CLEAR) 09/01/18 10:20 Urine pH 5.5 (4.7-8.0) 09/01/18 10:20 Ur Specific [place] 1.025 (1.005-1.035) 09/01/18 10:20 Urine Protein Negative mg/dL (<30 mg/dL) 09/01/18 10:20 Urine Glucose (UA) Negative mg/dL (NEGATIVE) 09/01/18 10:20 Urine Ketones Negative mg/dL (NEGATIVE) 09/01/18 10:20 Urine Blood Negative (NEGATIVE) 09/01/18 10:20 Urine Nitrate Negative (NEGATIVE) 09/01/18 10:20 Urine Bilirubin Negative (NEGATIVE) 09/01/18 10:20 Urine Urobilinogen 0.2 E.U./dL (<1 E.U./dL) 09/01/18 10:20 Ur Leukocyte Esterase Negative Yi/uL (NEGATIVE) 09/01/18 10:20 - Hospital Course Hospital Course: Upon Admission: 83 y/o F with PMHx of COPD on 3L home O2, pulm HTN, HTN, HLD, hypothyroidism, depression, anxiety presented to ED with complaints of RUQ abdominal pain that started the night before around 12am. She reports she noticed burning 6/10 right upper quadrant pain that eventually radiated to the epigastric region. She reported associated nausea and 2 episodes of vomiting. She reported shortness of breath for several years. Hospital Course: Pt had a initial WBC count of 10.4, elevated AST/ALT/Alk phos of 461/181/154. Gallbladder ultrasound revealed gallstones, wall thickening/pericholecystic fluid presumptive evidence for acute cholecystitis. Pt was started on empiric ciprofloxacin, started on IV fluid and placed NPO for possible surgical intervention. Pt was evaluated by surgery team, and deemed to be a high risk patient d/t chronic conditions. Pt would be a candidate for cholecystostomy tube place if clinical symptoms worsened. GI was consulted and agreed with surgical recommendations. Throughout hospital course, LFTs declined, WBC declined, and patient's clinical status improved. Upon Discharge: Pt reported improvement in abdominal pain. She reported no acute complaints. Her vital signs are stable. Her labs are within normal limits. Pt is hemodynamically stable. Pt is stable for discharge. She is to be discharged with ciprofloxacin, flagyl and probiotic. She was given detailed instructions on medication compliance and physician followup. Discharge Exam - Head Exam Head Exam: ATRAUMATIC, NORMAL INSPECTION, NORMOCEPHALIC Discharge Plan - Discharge Medications Prescriptions: Ciprofloxacin [Cipro] 500 mg PO BID #20 tab Lactobacillus Acidophilus [Probiotic Gold Acidophilus] 1 each PO BID #28 capsule metroNIDAZOLE [Flagyl] 500 mg PO TID #30 tab - Follow Up Plan Condition: STABLE Disposition: HOME/ ROUTINE Instructions: Gallstones (DC), Cholecystitis (DC) Additional Instructions: Please follow up at Dr. Huang's office (surgeon) after discharge to re- evaluate of your abdominal pain and gallbladder infection within 3-5 days Please follow up with your primary care doctor within 3-5 days of discharge. You will need repeat blood work to monitor your liver numbers as they were elevated here. Please resume all home medications as previously prescribed. You have been given prescriptions for Ciprofloxacin and Flagyl (antibiotics), and for Lactobacillus (a probiotic). Please take medications as prescribed. Please take with food. Do not drink alcohol while taking these medications as they can make you very ill. If you experience concerning new or worsening symptoms, or if you develop uncontrollable diarrhea, please present to the nearest emergency department. Referrals: Elizabeth Camara MD [Staff Provider] - Andres Huang MD [Medical Doctor] -
[2018-09-11] MEDS ORDERED: Ergocalciferol 50,000 Intl Units Cap PO SCH (10:00)
== END 2018-09-01 16:39 | disposition home or self-care (01) | DRG 445 ==
LOC: ED 05:53 → ERH 09:19 → 5RSO 11:18 → OBSVTOIN 08-29 11:09
PROVIDERS: ADMIT Hospitalist; ATTEND Hospitalist
PROC: 3E0F7GC Introduction of Other Therapeutic Substance into Respiratory Tract, Via Natural or Artificial Opening (ICD-10-PCS; principal; 2018-08-31)
DX: K80.00 Calculus of gallbladder with acute cholecystitis without obstruction (principal); J96.10 Chronic respiratory failure, unspecified whether with hypoxia or hypercapnia; I10 Essential (primary) hypertension; J44.9 Chronic obstructive pulmonary disease, unspecified; E03.9 Hypothyroidism, unspecified; I27.20 Pulmonary hypertension, unspecified; F41.9 Anxiety disorder, unspecified; R30.9 Painful micturition, unspecified; Z99.81 Dependence on supplemental oxygen; Z66 Do not resuscitate; K21.9 Gastro-esophageal reflux disease without esophagitis; E78.00 Pure hypercholesterolemia, unspecified; F32.9 Major depressive disorder, single episode, unspecified; Z79.51 Long term (current) use of inhaled steroids; Z79.890 Hormone replacement therapy; Z87.891 Personal history of nicotine dependence

== ENCOUNTER 2018-09-27 12:54 | Outpatient (CLI) | payer MEDICARE | END 2018-09-27 12:55 | disposition home or self-care (01) | LOC: CARDIO 12:54 | DX: I26.09 Other pulmonary embolism with acute cor pulmonale (principal) ==